=== PATIENT | male | born 1940 | race Caucasian/White ===

== ENCOUNTER 2017-02-03 10:30 | Emergency (ER) | payer MEDICARE, OTHER ==
[~2017-02-03] VITALS: Ht 172.7 cm; Wt 106.6 kg
--- NOTE | 2017-02-03 10:35 | NUR ---
[id number] FROM AMES: R EYEBROW LACERATION AND R FOREARM ABRASION. PT AOOX3. VSS. DENIES PAIN ELSEWHERE. AT BS FOR EVAL. SAFETY AND COMFORT MEASURES PROVIDED. WILL MONITOR.
--- NOTE | 2017-02-03 10:45 | NUR ---
AT FOR WOUND CARE.
[2017-02-03] MEDS ORDERED: TDAP [DIPH/PERTUSSIS/TET] 0.5 ML VIAL IM ONE ×2 (11:30→11:33)
[2017-02-03] MEDS ORDERED: LIDOCAINE /MPF 1% VIAL 5 ML VIAL IJ ONE (11:30)
--- NOTE | 2017-02-03 11:52 | NUR ---
Patient discharged to home in stable condition. Written and verbal after care instructions given. Patient verbalizes understanding of instruction.
[2017-02-03 11:55] VITALS: BP 143/81
== END 2017-02-03 11:57 | disposition home or self-care (01) ==
LOC: ER 10:35
DX: S01.111A Laceration without foreign body of right eyelid and periocular area, initial encounter (principal); S00.91XA Abrasion of unspecified part of head, initial encounter; S40.811A Abrasion of right upper arm, initial encounter; I10 Essential (primary) hypertension; Z88.0 Allergy status to penicillin; Z88.6 Allergy status to analgesic agent; Z88.8 Allergy status to other drugs, medicaments and biological substances; W01.0XXA Fall on same level from slipping, tripping and stumbling without subsequent striking against object, initial encounter; Y93.89 Activity, other specified; Y92.89 Other specified places as the place of occurrence of the external cause; Y99.8 Other external cause status
CPT/HCPCS: 70450-TC; 90715; A4606; A6402; Z7610

== ENCOUNTER 2018-01-30 16:20 | Inpatient (IN) | payer MEDICARE, OTHER ==
[~2018-01-30] VITALS: Ht 170.2 cm; Wt 94.8 kg
--- NOTE | 2018-01-30 16:40 | NUR ---
PT REC'D A CUP OF WATER AND RLE ELEVATED ON PILLOWS. ICE PACK APPLIED.
--- NOTE | 2018-01-30 16:50 | NUR ---
PT STARTED COUGHING AND YELLING. WATER ALL OVER PT AND FLOOR. PT STATED THAT HE WAS CHOKING ON SOMETHING. PT WAS SATURATING AT 95% ON RA. SUCTION CONNECTED. PT STARTED COUGHING AGAIN AND WAS SUCTIONED. SMALL AMOUT OF CHICKEN NOTED IN SUCTIONING CONTAINER. PT STATED THAT HE ATE CHICKEN FOR LUNCH.
--- NOTE | 2018-01-30 17:04 | NUR ---
XRAY AT THE BEDSIDE.
--- NOTE | 2018-01-30 17:37 | NUR ---
PT TO GET A SHORT LEG POSTERIOR ORTHOGLASS SPLINT TO RT LE
--- NOTE | 2018-01-30 17:38 | NUR ---
Crutches dispensed. Pt instructed on proper use of crutches BY MOLLY GREEN.
--- NOTE | 2018-01-30 17:49 | NUR ---
Patient discharged to home in stable condition. Written and verbal after care instructions given. Patient verbalizes understanding of instruction. PT'S VSS.
--- NOTE | 2018-01-30 18:12 | NUR ---
PT IS WAITING IN THE ROOM FOR FRIEND TO PICK HIM UP. Patient was able to demonstrate correct use of crutches.
--- NOTE | 2018-01-30 18:39 | NUR ---
PT'S FRIEND ARRIVED AND NOW PT IS UNSTEADY ON THE CRUTCHES. DR. WARREN IS AWARE.
[2018-01-30] MEDS ORDERED: ATOR80TA PO (18:55)
[2018-01-30] MEDS ORDERED: MAGN400T6 PO (18:55)
[2018-01-30] MEDS ORDERED: MULT1TAB73 PO (18:55)
[2018-01-30] MEDS ORDERED: TERA1CAP4 PO (18:55)
[2018-01-30] MEDS ORDERED: CHOL200026 PO (18:55)
[2018-01-30] MEDS ORDERED: PREG50CA PO (18:55)
[2018-01-30] MEDS ORDERED: METO-356 PO (18:55)
[2018-01-30] MEDS ORDERED: ASPI-1153 PO (18:55)
[2018-01-30 19:35] LABS: BASOPHILS # (AUTO) 0.1 /CMM (0.0-0.2); BASOPHILS % (AUTO) 0.9 % (0.0-2.0); EOSINOPHILS % (AUTO) 0.7 % (0.0-6.0); HEMATOCRIT 39 % (39-51); HEMOGLOBIN 13.9 g/dL (13.5-17.5); LYMPHOCYTES # (AUTO) 1.8 /CMM (0.8-4.8); LYMPHOCYTES % (AUTO) 22.1 % (20.0-44.0); MEAN CORPUSCULAR HGB CONC 35 g/dl (31.0-36.0); MEAN CORPUSCULAR VOLUME 89 fL (80-96); MONOCYTES # (AUTO) 0.7 /CMM (0.1-1.30); MONOCYTES % (AUTO) 8.6 % (2.0-12.0); NEUTROPHILS # (AUTO) 5.2 /CMM (1.8-8.9); NEUTROPHILS % (AUTO) 67.7 % (43.0-81.0); PLATELET COUNT (AUTO) 223 /CMM (150-450); RDW COEFFICIENT OF VARIATION 13.6 (11.5-15.0); RED BLOOD CELL COUNT(AUTO) 4.41 MIL/uL (4.5-6.0); WHITE BLOOD COUNT (AUTO) 7.9 K/uL (4.3-11.0)
[2018-01-30 19:36] LABS: INR 0.91 (0.85-1.15)
[2018-01-30 19:37] LABS: CARBON DIOXIDE 29 mmol/L (21-32); CHLORIDE 103 mmol/L (98-107); CREATININE 0.9 mg/dL (0.6-1.3); GLUCOSE 138 mg/dL (74-106); POTASSIUM 3.9 mmol/L (3.5-5.1); SODIUM SERUM 139 mmol/L (136-145); UREA NITROGEN, BLOOD 14 mg/dL (7-18)
--- NOTE | 2018-01-30 19:59 | NUR ---
MS 327-2
[2018-01-30] MEDS ORDERED: KETOROLAC TROMETHAMINE INJ 30 MG/ML VIAL IV PRN (20:00)
[2018-01-30] MEDS ORDERED: ONDANSETRON HCL/PF 4 MG/2 ML VIAL IVP PRN (20:00)
--- NOTE | 2018-01-30 20:02 | NUR ---
RANGEL REPORT TO MS NURSE.
[2018-01-30] MEDS ORDERED: PREGABALIN 25 MG CAPSULE PO PRN (20:30)
--- NOTE | 2018-01-30 20:39 | NUR ---
PT GOING TO MS VIA WC.
[2018-01-30 20:40] VITALS: BP 157/86
--- NOTE | 2018-01-30 21:00 | NUR ---
RN NOTES ADMITTED PATIENT FROM ER, SUPPOSED TO BE DISCHARGED TO HOME, PATIENT REFUSED DUE TO UNABLE TO AMBULATE, WITH RIGHT ANKLE FRACTURE. RECEIVED TREATMENT FROM ER. NO SURGICAL PLANS AT THIS TIME, ALERT AND ORIENTED X4, CALM, NO SOB, TOLERATING ROOM AIR, WITH CHRONIC DRY COUGH, PER PATIENT, HAD SEEN MD FOR COUGH, NO DX FOR NOW. NO IV LINE, SUPPOSED TO BE DISCHARGED TO HOME. DENIES PAIN AT REST, PAIN ONLY DURING MOVEMENT, NWB TO RIGHT ANKLE, REQUIRES WHEELCHAIR TO GO AROUND. CONTINENT OF BOWEL AND BLADDER, REFUSED URINAL. NEEDS ATTENDED, SKIN ASSESSMENT PERFORMED, ORIENTED TO ROOM AND USE OF CALL LIGHT.
[2018-01-30] MEDS: CHOLECALCIFEROL 1,000 UNIT TABLET (VIT D3) PO SCH (21:23)
[2018-01-30] MEDS: TERAZOSIN HCL 1 MG CAPSULE PO SCH (21:24)
[2018-01-30] MEDS ORDERED: ACETAMINOPHEN 325 MG TABLET PO PRN (22:30)
[2018-01-30 23:04] VITALS: BP 157/86
[2018-01-31] MEDS ORDERED: ASPIRIN 81 MG TAB.CHEW PO ONE (01:30)
[2018-01-31 04:52] LABS: BASOPHILS % (AUTO) 0.1 % (0.0-2.0); EOSINOPHILS % (AUTO) 0.8 % (0.0-6.0); HEMATOCRIT 39 % (39-51); HEMOGLOBIN 12.9 g/dL (13.5-17.5); LYMPHOCYTES # (AUTO) 1.9 /CMM (0.8-4.8); LYMPHOCYTES % (AUTO) 18.3 % (20.0-44.0); MEAN CORPUSCULAR HGB CONC 34 g/dl (31.0-36.0); MEAN CORPUSCULAR VOLUME 91 fL (80-96); MONOCYTES # (AUTO) 0.8 /CMM (0.1-1.30); NEUTROPHILS # (AUTO) 7.6 /CMM (1.8-8.9); NEUTROPHILS % (AUTO) 72.8 % (43.0-81.0); PLATELET COUNT (AUTO) 229 /CMM (150-450); RDW COEFFICIENT OF VARIATION 14.2 (11.5-15.0); RED BLOOD CELL COUNT(AUTO) 4.25 MIL/uL (4.5-6.0); WHITE BLOOD COUNT (AUTO) 10.5 K/uL (4.3-11.0)
[2018-01-31 05:18] LABS: ALANINE AMINOTRANSFERASE 39 U/L (12-78); ALBUMIN 3.3 g/dL (3.4-5.0); ALKALINE PHOSPHATASE 81 U/L (46-116); ASPARTATE AMINOTRANSFERASE 19 U/L (15-37); B-TYPE NATRIURETIC PEPTIDE 445 PG/ML (0-125); BILIRUBIN,TOTAL 0.8 mg/dL (0.2-1.0); CALCIUM, SERUM 8.8 mg/dL (8.5-10.1); CARBON DIOXIDE 28 mmol/L (21-32); CHLORIDE 104 mmol/L (98-107); CREATININE 0.8 mg/dL (0.6-1.3); GLUCOSE 117 mg/dL (74-106); PHOSPHORUS 3.2 mg/dL (2.5-4.9); POTASSIUM 3.8 mmol/L (3.5-5.1); SODIUM SERUM 140 mmol/L (136-145); TOTAL PROTEIN, SERUM 6.7 g/dL (6.4-8.2); UREA NITROGEN, BLOOD 14 mg/dL (7-18)
[2018-01-31 05:20] LABS: CHOLESTEROL 177 mg/dL (<200); HDL CHOLESTEROL 50 mg/dL (40-60); LDL 106 mg/dL (0-99); THYROID STIMULATING HORMONE 0.978 uIU/mL (0.358-3.74); TRIGLYCERIDES 181 mg/dL (30-150)
--- NOTE | 2018-01-31 06:17 | NUR ---
RN NOTES PATIENT IS RESTING, NO SOB, RESPIRATION EVEN AND UNLABORED, NO COMPLAIN OF PAIN, RIGHT FOOT SECURED WITH SPLINT, NWB TO RIGHT FOOT, HAD X1 EPISODE OF VOMITING, SLEPT FOR 6 HOURS, NEEDS ATTENDED, CALL LIGHT WITHIN REACH.
[2018-01-31 08:00] VITALS: BP 110/67
[2018-01-31] MEDS: METOPROLOL SUCCINATE 25 MG TAB.SR.24H PO SCH (09:00)
[2018-01-31] MEDS: ASPIRIN EC 81 MG TABLET.DR PO SCH (10:11)
[2018-01-31] MEDS: CHOLECALCIFEROL 1,000 UNIT TABLET (VIT D3) PO SCH (10:11)
[2018-01-31] MEDS: ATORVASTATIN 40 MG TABLET PO SCH (10:11)
[2018-01-31] MEDS: MULTIVITAMINS,THERAGRAN 1 UDTAB TABLET PO SCH (10:12)
[2018-01-31 16:00] VITALS: BP 127/70
--- NOTE | 2018-01-31 19:35 | NUR ---
MS POLANCO OPENING NOTES: RECEIVED PT IN BED AND SITTING UP. PT ON ROOM AIR. PT IS A/OX4. PT USING CELLPHONE AT THIS TIME. CALL LIGHT WITHIN PT'S REACH. BED KEPT IN LOW, LOCKED POSITION, AND SIDE RAILS X 2UP. WILL CONTINUE TO MONITOR PT. Addendum: 01/31/18 at 1952 by ADAM LUX RN PT HAS NO IV NOTED. PT ALSO HAS SPLINT ON RIGHT LOWER LEG.
[2018-01-31 20:00] VITALS: BP 152/84
--- NOTE | 2018-01-31 20:14 | NUR ---
regan graves in to see pt. as well as ortho md.no surgery needed.
[2018-01-31] MEDS: TERAZOSIN HCL 1 MG CAPSULE PO SCH (21:26)
--- NOTE | 2018-02-01 01:15 | NUR ---
MS RN NOTES: SPOKE WITH STRAIGHT LINE EDGER PILLO AND INFORMED HIM THAT PT'S ALLERGIC REACTIONS TO PCN: UNKNOWN, DEMEROL: SEVERE DROWSINESS, VICODIN: SEVERE RASH, AND CARDIOLITE, LEXISCAN: SEVERE RASH ; ALSO INFORMED HIM THAT PT HAS NO IV. HE IS AWARE. HE SAID TO TRY TYLENOL 325MG PO X ONCE AND MONITOR FOR 4-6 HOURS. WILL CONTINUE TO MONITOR PT.
[2018-02-01] MEDS ORDERED: ACETAMINOPHEN 325 MG TABLET PO ONE ×2 (01:30→20:30)
[2018-02-01 06:40] LABS: BASOPHILS % (AUTO) 0.2 % (0.0-2.0); EOSINOPHILS % (AUTO) 1.5 % (0.0-6.0); HEMATOCRIT 37 % (39-51); HEMOGLOBIN 12.4 g/dL (13.5-17.5); LYMPHOCYTES # (AUTO) 2.2 /CMM (0.8-4.8); LYMPHOCYTES % (AUTO) 24.6 % (20.0-44.0); MEAN CORPUSCULAR HGB CONC 34 g/dl (31.0-36.0); MEAN CORPUSCULAR VOLUME 91 fL (80-96); MONOCYTES # (AUTO) 0.8 /CMM (0.1-1.30); MONOCYTES % (AUTO) 8.4 % (2.0-12.0); NEUTROPHILS % (AUTO) 65.3 % (43.0-81.0); PLATELET COUNT (AUTO) 214 /CMM (150-450); RDW COEFFICIENT OF VARIATION 14.1 (11.5-15.0); WHITE BLOOD COUNT (AUTO) 9.1 K/uL (4.3-11.0)
[2018-02-01 07:25] LABS: CALCIUM, SERUM 8.5 mg/dL (8.5-10.1); CARBON DIOXIDE 28 mmol/L (21-32); CHLORIDE 100 mmol/L (98-107); CREATININE 0.8 mg/dL (0.6-1.3); GLUCOSE 117 mg/dL (74-106); POTASSIUM 3.6 mmol/L (3.5-5.1); SODIUM SERUM 137 mmol/L (136-145); UREA NITROGEN, BLOOD 10 mg/dL (7-18)
[2018-02-01 07:32] LABS: APPEARANCE,URINE CLOUDY (CLEAR); BILIRUBIN,URINE NEGATIVE (NEGATIVE); BLOOD, URINE NEGATIVE Ery/uL (NEGATIVE); COLOR,URINE YELLOW (YELLOW); KETONES,URINE NEGATIVE (NEGATIVE); LEUKOCYTE ESTERASE ,URINE NEGATIVE (NEGATIVE); NITRITE, URINE NEGATIVE (NEGATIVE); PROTEIN,URINE NEGATIVE (NEGATIVE); UGLUCOSE NEGATIVE (NEGATIVE); UROBILINOGEN,URINE 0.2 EU/dL (0.2)
--- NOTE | 2018-02-01 07:47 | NUR ---
MS RN CLOSING NOTES: ALL NEEDS WERE ATTENDED AND ANTICIPATED FOR. PT ASLEEP AT THIS TIME. NO IV NOTED AT THIS TIME. PT HAS R LOWER LEG AIR FRACTURE BOOT FOR R ANKLE FRACTURE. CALL LIGHT WITHIN PT'S REACH. BED KEPT IN LOW, LOCKED POSITION, AND SIDE RAILS X 2UP. ENDORSED TO AM NURSE FOR SHANIQUA.
[2018-02-01 08:00] VITALS: BP 120/70
--- NOTE | 2018-02-01 08:00 | NUR ---
ms rn received on bed, awake,alert,oriented x4,not in any form of distress,respirations even and unlabored,no sob noted, lungs are clear,abdomen soft, positive bowel sounds,denies pain at this time,will monitor patient's condition.
[2018-02-01 08:09] LABS: BACTERIA,URINE Rare /HPF (None Seen); RBC,URINE 0-2 /HPF (0-2); SQUAMOUS EPITHELIAL CELL,UR 0-2 /HPF (None Seen); URINE AMORPHOUS URATE Moderate /HPF (None Seen); WBC,URINE 0-2 /HPF (0-3)
--- NOTE | 2018-02-01 09:00 | NUR ---
ms mccrary breakfast served,due meds given,tolerated well.
[2018-02-01] MEDS: MULTIVITAMINS,THERAGRAN 1 UDTAB TABLET PO SCH (09:56)
[2018-02-01] MEDS: ASPIRIN EC 81 MG TABLET.DR PO SCH (09:56)
[2018-02-01] MEDS: ATORVASTATIN 40 MG TABLET PO SCH (09:56)
[2018-02-01] MEDS: CHOLECALCIFEROL 1,000 UNIT TABLET (VIT D3) PO SCH (09:57)
[2018-02-01] MEDS: METOPROLOL SUCCINATE 25 MG TAB.SR.24H PO SCH (09:57)
--- NOTE | 2018-02-01 16:00 | NUR ---
ms rn was seen by pt, tolerated well.
[2018-02-01 16:08] VITALS: BP 130/71
--- NOTE | 2018-02-01 17:18 | NUR ---
ms rn on bed, no change of condition.
--- NOTE | 2018-02-01 19:30 | NUR ---
MS RN OPENING NOTES: RECEIVED PT IN BED AND IS SITTING UPRIGHT IN BED. AIR FRACTURE BOOT REMAINS IN PLACE ON RIGHT LOWER LEG. PT REQUESTING FOR TYLENOL HE TOOK TYLENOL AROUND 0100 THIS AM AND SAID HE HAD NO REACTIONS TO IT. INFORMED HIM THAT I WILL HAVE TO CALL DOCTOR FOR ORDER. CALL LIGHT WITHIN PT'S REACH. BED KEPT IN LOW, LOCKED POSITION, AND SIDE RAILS X 2UP. WILL CONTINUE TO MONITOR PT.
[2018-02-01 20:00] VITALS: BP 130/75
--- NOTE | 2018-02-01 20:24 | NUR ---
MS RN NOTES: SPOKE WITH CANT HOOKER PAULA FERRO. INFORMED HIM THAT PT IS REQUESTING FOR TYLENOL AGAIN FOR PAIN HE DID NOT HAVE ANY REACTIONS TO IT WHEN HE TOOK IT THIS MORNING AT 0134AM. SONIA FERRO AWARE OF ALLERGIES TO PCNS, ACETAMINOPHEN, HYDROCODONE, MEPERIDINE. GOT ONE TIME ORDER FOR TYLENOL 650MG PO X ONE. ALSO TO ENDORSE TO AM NURSE TO FOLLOW UP WITH PRIMARY MD ABOUT THIS.
--- NOTE | 2018-02-01 20:30 | NUR ---
MS RN NOTES: SPOKE WITH DALE FROM PHARMACY AND NOTIFIED HIM THAT SONIA FERRO IS AWARE OF ACETAMINOPHEN ALLERGY. EXPLAINED TO DALE THAT PT TOOK IT ONE TIME AND HE HAD NO REACTIONS TO IT. HE SAID HE WILL TAKE OUT THE ACETAMINOPHEN OFF ALLERGY IT MAY BE THE HYDROCODONE COMPONENT.
[2018-02-01] MEDS: TERAZOSIN HCL 1 MG CAPSULE PO SCH (21:05)
--- NOTE | 2018-02-02 07:01 | NUR ---
MS RN CLOSING NOTES: ALL NEEDS WERE ATTENDED AND ANTICIPATED FOR. NO IV NOTED. PT WITH BOOT ON RIGHT LOWER LEG. PT ASLEEP AT THIS TIME. NO S/S OF DISTRESS NOTED. CALL LIGHT WITHIN PT'S REACH. BED KEPT IN LOW, LOCKED POSITION, AND SIDE RAILS X 2UP. WILL ENDORSE TO AM NURSE FOR SHANIQUA.
[2018-02-02 08:00] VITALS: BP 120/94
--- NOTE | 2018-02-02 08:00 | NUR ---
MS RN RECEIVED ON BED, AWAKE,ALERT, ORIENTED X4,NOT IN ANY FORM OF DISTRESS, RESPIRATIONS EVEN AND UNLABORED,NO SOB NOTED, LUNGS ARE CLEAR, ABDOMEN SOFT, POSITIVE BOWEL SOUNDS, DENIES PAIN AT THIS TIME, WILL MONITOR PATIENT.
[2018-02-02] MEDS: ATORVASTATIN 40 MG TABLET PO SCH (08:57)
[2018-02-02] MEDS: ASPIRIN EC 81 MG TABLET.DR PO SCH (08:57)
[2018-02-02] MEDS: CHOLECALCIFEROL 1,000 UNIT TABLET (VIT D3) PO SCH (08:57)
[2018-02-02] MEDS: MULTIVITAMINS,THERAGRAN 1 UDTAB TABLET PO SCH (08:57)
[2018-02-02] MEDS: METOPROLOL SUCCINATE 25 MG TAB.SR.24H PO SCH (08:58)
--- NOTE | 2018-02-02 09:00 | NUR ---
MS POLANCO BREAKFAST SERVED DUE MEDS GIVEN,TOLERATED WELL.
--- NOTE | 2018-02-02 11:00 | NUR ---
MS RN CALLED HARNESS FITTER, PATIENT WILL BE TRANSFERRED TO [facility] AT 2PM, IS AWARE.
--- NOTE | 2018-02-02 12:59 | NUR ---
ms rn on bed,no change of condition.
[2018-02-02 16:01] VITALS: BP 104/55
--- NOTE | 2018-02-02 16:36 | NUR ---
MS RN CHANGE OF REHAB, PATIENT WILL BE GOING TO [facility] INSTEAD OF [facility].
--- NOTE | 2018-02-02 18:00 | NUR ---
MS RN PATIENT READY FOR DISCHARGE, REFUSED TO TAKE PICTURE ON HIS BOTH FOREARMS, ABRASION, NO S/S OF INFECTION,OPEN TO AIR.
--- NOTE | 2018-02-02 19:00 | NUR ---
MS RN PATIENT TRANSFERRED TO [facility], REPORT GIVEN TO PETER POLANCO, ALL NEEDS ATTENDED.
== END 2018-02-02 18:00 | DRG 562 ==
LOC: ER 16:22 → MED 20:02
PROVIDERS: ADMIT Nurse Practitioner Acute Care; ATTEND Nurse Practitioner Acute Care
DX: S82.434A Nondisplaced oblique fracture of shaft of right fibula, initial encounter for closed fracture (principal); I21.A1 Myocardial infarction type 2; E88.09 Other disorders of plasma-protein metabolism, not elsewhere classified; E44.1 Mild protein-calorie malnutrition; W01.0XXA Fall on same level from slipping, tripping and stumbling without subsequent striking against object, initial encounter; E66.9 Obesity, unspecified; E78.5 Hyperlipidemia, unspecified; Z68.32 Body mass index [BMI] 32.0-32.9, adult; I25.10 Atherosclerotic heart disease of native coronary artery without angina pectoris; Z87.891 Personal history of nicotine dependence; Z88.0 Allergy status to penicillin; I51.7 Cardiomegaly; R73.9 Hyperglycemia, unspecified; I25.2 Old myocardial infarction; R26.81 Unsteadiness on feet; Y93.9 Activity, unspecified; Y92.009 Unspecified place in unspecified non-institutional (private) residence as the place of occurrence of the external cause; I10 Essential (primary) hypertension; M25.561 Pain in right knee; G62.9 Polyneuropathy, unspecified; S93.491A Sprain of other ligament of right ankle, initial encounter
CPT/HCPCS: 36415; 71045-TC; 73560-TC; 73600-TC; 80048-TC; 80053-TC; 80061-TC; 81000-TC; 83735-TC; 83880; 84100-TC; 84443-TC; 84484-TC; 85025-TC; 85730-TC; 87081-TC; 87086-TC; 92521; 93307-TC; 97110-TC; 97116-TC; 97530-TC; A4606; Z7610

== ENCOUNTER 2018-04-28 02:44 | Emergency (ER) | payer MEDICARE, OTHER ==
[~2018-04-28] VITALS: Ht 170.2 cm; Wt 93.4 kg
[~2018-04-28 02:44] MED LIST: ASPI-1153 PO; ATOR80TA PO; CHOL200026 PO; MAGN400T6 PO; METO-356 PO; MULT1TAB73 PO; PREG50CA PO; TERA1CAP4 PO
--- NOTE | 2018-04-28 02:50 | NUR ---
BBSELF C/C UNABLE TO URINATE SINCE 1799. PT STATES "I HAVE BAD GROIN PAIN", NON-RADIATING. NO N/V. SKIN WARM AND DRY TO TOUCH. WAITING FOR MD HOLLEY.
[2018-04-28] MEDS ORDERED: LIDOCAINE 2% JEL UROJET 10 ML MM ONE (02:53)
[2018-04-28] MEDS ORDERED: MORPHINE SULFATE INJ 4 MG/ML DISP.SYRIN ONE (03:15)
[2018-04-28] MEDS ORDERED: MORPHINE SULFATE INJ 2 MG/ML DISP.SYRIN IM ONE (03:30)
[2018-04-28 03:54] LABS: APPEARANCE,URINE TURBID (CLEAR); BILIRUBIN,URINE 2+ (NEGATIVE); BLOOD, URINE 3+ Ery/uL (NEGATIVE); COLOR,URINE AMBER (YELLOW); KETONES,URINE TRACE (NEGATIVE); LEUKOCYTE ESTERASE ,URINE 2+ (NEGATIVE); NITRITE, URINE POSITIVE (NEGATIVE); PH,URINE 6.5 (5.0-8.0); PROTEIN,URINE 3+ mg/dl (NEGATIVE); UGLUCOSE NEGATIVE (NEGATIVE)
[2018-04-28 04:19] LABS: RBC,URINE TOO NUMEROUS TO COUN /HPF (0-2)
[2018-04-28 04:20] LABS: BACTERIA,URINE Few /HPF (None Seen); SQUAMOUS EPITHELIAL CELL,UR Few /HPF (None Seen)
--- NOTE | 2018-04-28 05:00 | NUR ---
VALERO REMOVED PER
--- NOTE | 2018-04-28 05:29 | NUR ---
PT TO CT
[2018-04-28] MEDS ORDERED: CIPROFLOXACIN IV RTU 400 MG in PREMIX 1 EA IV SCH (05:30)
[2018-04-28 05:32] LABS: BASOPHILS % (AUTO) 0.2 % (0.0-2.0); EOSINOPHILS % (AUTO) 0.2 % (0.0-6.0); HEMATOCRIT 38 % (39-51); HEMOGLOBIN 12.3 g/dL (13.5-17.5); LYMPHOCYTES # (AUTO) 1.6 /CMM (0.8-4.8); LYMPHOCYTES % (AUTO) 12.3 % (20.0-44.0); MEAN CORPUSCULAR HEMOGLOBIN 31 PG (26.0-33.0); MEAN CORPUSCULAR HGB CONC 33 g/dl (31.0-36.0); MEAN CORPUSCULAR VOLUME 94 fL (80-96); MONOCYTES # (AUTO) 0.8 /CMM (0.1-1.30); MONOCYTES % (AUTO) 6.1 % (2.0-12.0); NEUTROPHILS # (AUTO) 10.3 /CMM (1.8-8.9); NEUTROPHILS % (AUTO) 81.2 % (43.0-81.0); PLATELET COUNT (AUTO) 216 /CMM (150-450); RDW COEFFICIENT OF VARIATION 14.2 (11.5-15.0); RED BLOOD CELL COUNT(AUTO) 4.01 MIL/uL (4.5-6.0); WHITE BLOOD COUNT (AUTO) 12.7 K/uL (4.3-11.0)
[2018-04-28 05:40] LABS: CALCIUM, SERUM 8.3 mg/dL (8.5-10.1); CARBON DIOXIDE 27 mmol/L (21-32); CHLORIDE 101 mmol/L (98-107); CREATININE 0.8 mg/dL (0.6-1.3); GLUCOSE 141 mg/dL (74-106); POTASSIUM 3.9 mmol/L (3.5-5.1); SODIUM SERUM 136 mmol/L (136-145); UREA NITROGEN, BLOOD 10 mg/dL (7-18)
[2018-04-28 06:12] VITALS: BP 129/86
== END 2018-04-28 06:32 | disposition home or self-care (01) ==
LOC: ER 02:45
DX: N39.0 Urinary tract infection, site not specified (principal); N48.89 Other specified disorders of penis; N43.3 Hydrocele, unspecified; N41.9 Inflammatory disease of prostate, unspecified; G62.9 Polyneuropathy, unspecified; Z79.82 Long term (current) use of aspirin; Z88.0 Allergy status to penicillin; Z88.5 Allergy status to narcotic agent; Z90.89 Acquired absence of other organs
CPT/HCPCS: 36415; 76870-TC; 80048-TC; 81000-TC; 85025-TC; 87086-TC; 93978-TC; A4216; A4606; J0744; J2270; J3490; Z7610

== ENCOUNTER 2020-08-27 14:10 | Inpatient (IN) | payer MEDICARE, OTHER ==
[~2020-08-27] VITALS: Ht 172.7 cm; Wt 103.0 kg
[~2020-08-27 14:10] MED LIST changes: -ASPI-1153 PO; +ASPI-1498 PO; -MAGN400T6 PO; +MAGN400T8 PO; -METO-356 PO; +METO25TA4 PO; +MULT-754 PO; -MULT1TAB73 PO
--- NOTE | 2020-08-27 14:10 | NUR ---
BIB RA 78 FROM HOME, TWISTED HIS L ANKLE WHILE WALKING AT HOME, TO ER BED 9, HOOKED TO MONITOR, CHANGED TO HOSP GOWN, WARM BLANKET PROVIDED, PATIENT AAO x 4, AWAITING MD HOLLEY
--- NOTE | 2020-08-27 15:12 | NUR ---
DR YEE AT BEDSIDE
[2020-08-27 15:31] LABS: BASOPHILS % (AUTO) 0.3 % (0.0-2.0); EOSINOPHILS % (AUTO) 1.8 % (0.0-6.0); HEMATOCRIT 39 % (39-51); HEMOGLOBIN 12.8 g/dL (13.5-17.5); LYMPHOCYTES # (AUTO) 1.6 /CMM (0.8-4.8); LYMPHOCYTES % (AUTO) 21.4 % (20.0-44.0); MEAN CORPUSCULAR HGB CONC 33 g/dl (31.0-36.0); MEAN CORPUSCULAR VOLUME 95 fL (80-96); MONOCYTES # (AUTO) 0.6 /CMM (0.1-1.30); MONOCYTES % (AUTO) 7.6 % (2.0-12.0); NEUTROPHILS # (AUTO) 5.3 /CMM (1.8-8.9); NEUTROPHILS % (AUTO) 68.9 % (43.0-81.0); PLATELET COUNT (AUTO) 163 /CMM (150-450); RED BLOOD CELL COUNT(AUTO) 4.08 MIL/uL (4.5-6.0); WHITE BLOOD COUNT (AUTO) 7.7 K/uL (4.3-11.0)
--- NOTE | 2020-08-27 15:37 | NUR ---
ORTHO CONSULT CATALINA. WAITING FOR CALL BACK.
[2020-08-27 15:39] LABS: CALCIUM, SERUM 9.1 mg/dL (8.5-10.1); CREATININE 0.8 mg/dL (0.6-1.3); POTASSIUM 3.8 mmol/L (3.5-5.1)
[2020-08-27] MEDS ORDERED: AZEL137S7 (15:47)
[2020-08-27] MEDS ORDERED: TERA5CAP4 PO (15:47)
--- NOTE | 2020-08-27 17:39 | NUR ---
BED 102.
--- NOTE | 2020-08-27 17:48 | NUR ---
RAPID COVID SWAB DONE AND SENT TO LAB
--- NOTE | 2020-08-27 17:48 | NUR ---
ORTHO CONSULT CATALINA. WAITING FOR CALL BACK.
--- NOTE | 2020-08-27 18:09 | NUR ---
REPORT GIVEN TO MOODY POLANCO OF MS UNIT. TO UPDATE NURSE WITH RAPID COVID RESULT BEFORE TRANSFER.
[2020-08-27] MEDS ORDERED: PROPOFOL 200 MG/20 ML VIAL IV ONE ×2 (18:30→19:30)
--- NOTE | 2020-08-27 18:30 | NUR ---
Dr Tipton at bedside to explain procedure. patient signed consent for L ankle closed reduction under moderate sedation
[2020-08-27] MEDS ORDERED: PROPOFOL 20 ML IV ONE (18:33)
[2020-08-27] MEDS ORDERED: ONDANSETRON HCL/PF 4 MG/2 ML VIAL IVP PRN (19:00)
[2020-08-27] MEDS ORDERED: MAG HYDROX/AL HYDROX/SIMETH 30 ML UDC PO PRN (19:00)
[2020-08-27] MEDS ORDERED: HYDROCODONE/APAP 5/325MG TABLET PO PRN (19:00)
[2020-08-27] MEDS ORDERED: ACETAMINOPHEN 325 MG TABLET PO PRN (19:00)
[2020-08-27] MEDS ORDERED: Z GUARD REMEDY 2 OZ OINT TP PRN (19:00)
[2020-08-27] MEDS ORDERED: MAGNESIUM HYDROXIDE 30 ML UDC PO PRN (19:00)
--- NOTE | 2020-08-27 19:03 | NUR ---
Report given to COLLIN Sen for SHANIQUA.
[2020-08-27 20:20] VITALS: BP 129/90
--- NOTE | 2020-08-27 20:25 | NUR ---
PT TRANSFERRED TO ROOM PER ACLS PROTOCOL
--- NOTE | 2020-08-27 20:30 | NUR ---
RECEIVED PT FROM ER VIA [facility] AWAKE A/O X3 ON O2 VIA NC @ 2L SPO2 99% LEFT FOOT CAST NOTED, CIRCULATION CHECKED, TRANSFER SAFELY FROM [facility] TO BED, V/S CHECKED AND RECORDED HEAD TO TOE ASSESSMENT DONE MULTIPLE BRUISES NOTED, PICTURE TAKEN, INITIAL ASSESSMENT DONE, HOOK TO TELE MONITOR WITH READING SINUS RHYTHM 80'S PAIN OF 10/10 IN LOWER EXTREMITIES COMPLAINT, PRN MEDS GIVEN, SAFETY MEASURE INITIATED BED ON LOWEST POSITION AND LOCKED SIDE RAILS UP X2 CALL LIGHT WITHIN REACH WILL CONT TO MONITOR
[2020-08-27] MEDS: MORPHINE SULFATE INJ 2 MG/ML DISP.SYRIN IV PRN (20:46)
[2020-08-27] MEDS ORDERED: TERAZOSIN HCL 5 MG CAPSULE PO SCH (22:00)
--- NOTE | 2020-08-27 23:35 | NUR ---
2334 PATIENT REQUESTING FOR A DOSE OF LYRICA AND ATORVASTATIN TONIGHT, DR BANG NOTIFIED AND AGREED.
--- NOTE | 2020-08-27 23:58 | NUR ---
TALK TO PT ABOUT THE HYRIN IF HE CAN ASK SOMEBODY TO BRING IT FROM HOME, HE SAID HE WILL TRY TO CALL HIS GIRLFRIEND AND ASK IF HE CAN BRING IT HERE, WILL F/U TOMORROW AND ENDORSE IT TO AM SHIFT NURSE
[2020-08-28] VITALS: BP 121/73
[2020-08-28] MEDS ORDERED: PREGABALIN 25 MG CAPSULE PO ONE
[2020-08-28] MEDS ORDERED: ATORVASTATIN 40 MG TABLET PO ONE
[2020-08-28] MEDS: MORPHINE SULFATE INJ 2 MG/ML DISP.SYRIN IV PRN ×2 (02:21→09:51)
[2020-08-28 04:00] VITALS: BP 122/72
[2020-08-28 06:31] LABS: BASOPHILS % (AUTO) 0.3 % (0.0-2.0); EOSINOPHILS % (AUTO) 1.5 % (0.0-6.0); HEMATOCRIT 38 % (39-51); HEMOGLOBIN 12.4 g/dL (13.5-17.5); LYMPHOCYTES # (AUTO) 1.9 /CMM (0.8-4.8); LYMPHOCYTES % (AUTO) 26.2 % (20.0-44.0); MEAN CORPUSCULAR HGB CONC 33 g/dl (31.0-36.0); MEAN CORPUSCULAR VOLUME 94 fL (80-96); MONOCYTES # (AUTO) 0.7 /CMM (0.1-1.30); MONOCYTES % (AUTO) 9.4 % (2.0-12.0); NEUTROPHILS # (AUTO) 4.5 /CMM (1.8-8.9); NEUTROPHILS % (AUTO) 62.6 % (43.0-81.0); PLATELET COUNT (AUTO) 168 /CMM (150-450); RED BLOOD CELL COUNT(AUTO) 3.97 MIL/uL (4.5-6.0); WHITE BLOOD COUNT (AUTO) 7.3 K/uL (4.3-11.0)
--- NOTE | 2020-08-28 07:10 | NUR ---
PT ON BED AWAKE ON O2 2L VIA NC TOLERATING WELL NO SOB NOTED, PAIN ON BLE STILL COMPLAINT DONT WANT TO TAKE MORPHINE AT THIS MOMENT HE SAID ITS STILL TOLERABLE, TELE MONITOR READS SINUS RHYTHM 80S ALL NEEDS ATTENDED SAFETY MEASURE MAINTAINED BED ON LOWEST POSITION AND LOCKED SIDE RAILS UP X2 CALL LIGHT WITHIN REACH WILL ENDORSED TO AM SHIFT NURSE
[2020-08-28 07:42] LABS: CALCIUM, SERUM 8.8 mg/dL (8.5-10.1); CREATININE 0.8 mg/dL (0.6-1.3); MAGNESIUM 1.8 mg/dL (1.8-2.4); PHOSPHORUS 3.7 mg/dL (2.5-4.9); POTASSIUM 4.1 mmol/L (3.5-5.1)
[2020-08-28 07:53] LABS: THYROID STIMULATING HORMONE 1.642 uIU/mL (0.358-3.74)
[2020-08-28 08:00] VITALS: BP 123/73
--- NOTE | 2020-08-28 08:00 | NUR ---
SALES PRODUCT MANAGER NOTE PATIENT IN BED AWAKE ,ALERT, ON TELE MONITOR SR HR 89, ON 2L NC NO SOB NOTED AT THIS TIME ,SEEN BY SAMMIE POLANCO FOREST ECOLOGIST OK TO GIVE MEDS AND POSSIBLE SURGERY, , LT LEG WITH BRACE INTACT ABLE TO MOVE TOES, RT AC HL INTACT AND FLUSHED WELL , BED IN LOWEST AND LOCKED POSITION , SAFETY MEASURE PROVIDED,OFFERED PAIN MEDICATION BUT REFUSED ,WILL CONT TO MONITOR
[2020-08-28] MEDS ORDERED: PREGABALIN 25 MG CAPSULE PO SCH (09:00)
[2020-08-28] MEDS ORDERED: AZELASTINE NASAL SPRAY 30 ML BOTTLE NS SCH (09:00)
[2020-08-28] MEDS ORDERED: METFORMIN 500 MG TABLET PO SCH (09:00)
[2020-08-28] MEDS ORDERED: FAMOTIDINE/PF INJ 20 MG/2 ML VIAL IV SCH (09:00)
[2020-08-28] MEDS ORDERED: METOPROLOL SUCCINATE 25 MG TAB.SR.24H PO SCH (09:00)
[2020-08-28] MEDS ORDERED: PANTOPRAZOLE 40 MG VIAL IV SCH (09:00)
--- NOTE | 2020-08-28 10:19 | NUR ---
telephone clerk note dr sanches bed side ortho, brace readjustment done, morphine 1 mg ivp given as ordered
--- NOTE | 2020-08-28 11:23 | NUR ---
teletype adjuster note turn reposition, keep clean dry , keep elevated lt leg on pillow, and per Akua mccrary sterile processing technician ok to start Lovenox and cardiac diet, order carried out
[2020-08-28] MEDS ORDERED: ENOXAPARIN SODIUM 40 MG/0.4 ML DISP.SYRIN SQ SCH (11:30)
[2020-08-28 12:00] VITALS: BP 131/75
--- NOTE | 2020-08-28 12:05 | NUR ---
tele r note ua collected as ordered, keep clean dry
[2020-08-28 12:13] LABS: BILIRUBIN,URINE NEGATIVE (NEGATIVE); BLOOD, URINE NEGATIVE Ery/uL (NEGATIVE); COLOR,URINE DARK YELLOW (YELLOW); LEUKOCYTE ESTERASE ,URINE NEGATIVE (NEGATIVE); NITRITE, URINE NEGATIVE (NEGATIVE); PH,URINE 5.5 (5.0-8.0); PROTEIN,URINE NEGATIVE (NEGATIVE); UGLUCOSE NEGATIVE (NEGATIVE); UROBILINOGEN,URINE 0.2 EU/dL (0.2)
[2020-08-28 12:47] LABS: BACTERIA,URINE None seen /HPF (None Seen); RBC,URINE NONE SEEN /HPF (0-2); SQUAMOUS EPITHELIAL CELL,UR Moderate /HPF (None Seen); WBC,URINE 0-2 /HPF (0-3)
--- NOTE | 2020-08-28 14:43 | NUR ---
telegraphic typewriter mechanic note unable to do picture on back patient refused, stated its painful to move ,offered pain meds but refused
[2020-08-28] MEDS ORDERED: FAMO-131 PO (15:35)
[2020-08-28] MEDS ORDERED: ENOX40DI SQ (15:35)
[2020-08-28] MEDS ORDERED: ACET325T53 PO (15:35)
[2020-08-28] MEDS ORDERED: MAGN400O6 PO (15:35)
[2020-08-28] MEDS ORDERED: HYDR-3972 PO (15:35)
[2020-08-28] MEDS ORDERED: METF-440 PO (15:35)
[2020-08-28 16:00] VITALS: BP 132/66
--- NOTE | 2020-08-28 16:30 | NUR ---
CROSS CUT SAW OPERATOR NOTE CALLED TO SNF REPORT GIVEN TO TATA POLANCO
--- NOTE | 2020-08-28 17:00 | NUR ---
television reporter note ambulance arrived report given ,went to snf with stable condition, rt ac hl removed ,tele removed
[2020-08-28] MEDS ORDERED: ATORVASTATIN 40 MG TABLET PO SCH (18:00)
[2020-08-28] MEDS ORDERED: CHOLECALCIFEROL (VITAMIN D 3) 400 UNIT TABLET PO SCH (18:00)
[2020-08-28] MEDS ORDERED: MULTIVIT W/MINERALS 1 TAB TABLET PO SCH (18:00)
[2020-08-28] MEDS ORDERED: TERAZOSIN HCL 1 MG CAPSULE PO SCH (22:00)
== END 2020-08-28 16:47 | DRG 544 ==
LOC: ER 14:14 → TELE1 17:50
PROVIDERS: ADMIT Registered Nurse; ATTEND Registered Nurse
PROC: 0QSKXZZ Reposition Left Fibula, External Approach (ICD-10-PCS; principal; 2020-08-28)
PROC: 0QSHXZZ Reposition Left Tibia, External Approach (ICD-10-PCS; 2020-08-28)
DX: M84.472A Pathological fracture, left ankle, initial encounter for fracture (principal); E78.5 Hyperlipidemia, unspecified; F40.240 Claustrophobia; G62.9 Polyneuropathy, unspecified; I25.2 Old myocardial infarction; I10 Essential (primary) hypertension; Z87.891 Personal history of nicotine dependence; Z95.2 Presence of prosthetic heart valve; W01.0XXA Fall on same level from slipping, tripping and stumbling without subsequent striking against object, initial encounter; Y93.9 Activity, unspecified; Y92.009 Unspecified place in unspecified non-institutional (private) residence as the place of occurrence of the external cause
CPT/HCPCS: 36415; 71045-TC; 73600-TC; 80048-TC; 80061-TC; 81001; 83735-TC; 84100-TC; 84443-TC; 85025-TC; 85730-TC; 87081-TC; 93307-TC; G0378; G0500; J1650; J2270; J2704; J3490; J7030

== ENCOUNTER 2020-09-03 14:49 | Inpatient (IN) | payer MEDICARE, OTHER ==
[~2020-09-03] VITALS: Ht 172.7 cm; Wt 98.4 kg
[~2020-09-03 14:49] MED LIST changes: +ACET325T53 PO; +AZEL137S7; +ENOX40DI SQ; +FAMO-131 PO; +HYDR-3972 PO; +MAGN400O6 PO; -MAGN400T8 PO; +METF-440 PO; -TERA1CAP4 PO; +TERA5CAP4 PO
--- NOTE | 2020-09-03 15:25 | NUR ---
DR. ARREOLA AT BS FOR KISHAN
[2020-09-03] MEDS ORDERED: NA P133E RC (15:26)
[2020-09-03] MEDS ORDERED: MULT-439 PO (15:26)
[2020-09-03] MEDS ORDERED: CRAN425C6 PO (15:26)
[2020-09-03] MEDS ORDERED: MAGN400O6 PO (15:26)
[2020-09-03] MEDS ORDERED: HYDR-4384 PO (15:26)
[2020-09-03] MEDS ORDERED: BISA10SU61 RC (15:26)
[2020-09-03] MEDS ORDERED: DOCU-141 PO (15:26)
--- NOTE | 2020-09-03 15:38 | NUR ---
BIB [facility] FOR NAUSEA AND VOMITING AND NOTED HEMATURIA TODAY. PT AAOX4, VSS. RR EVEN & UNLABORED. DENIES CP, SOB, DIZZINESS AT THIS TIME. WILL CONT TO MONITOR.
[2020-09-03 15:46] LABS: BASOPHILS # (AUTO) 0.1 /CMM (0.0-0.2); BASOPHILS % (AUTO) 0.4 % (0.0-2.0); EOSINOPHILS % (AUTO) 0.1 % (0.0-6.0); HEMATOCRIT 37 % (39-51); LYMPHOCYTES # (AUTO) 0.3 /CMM (0.8-4.8); MEAN CORPUSCULAR HGB CONC 33 g/dl (31.0-36.0); MEAN CORPUSCULAR VOLUME 94 fL (80-96); MONOCYTES # (AUTO) 0.7 /CMM (0.1-1.30); MONOCYTES % (AUTO) 4.6 % (2.0-12.0); NEUTROPHILS # (AUTO) 14.5 /CMM (1.8-8.9); NEUTROPHILS % (AUTO) 92.9 % (43.0-81.0); PLATELET COUNT (AUTO) 243 /CMM (150-450); WHITE BLOOD COUNT (AUTO) 15.6 K/uL (4.3-11.0)
--- NOTE | 2020-09-03 15:49 | NUR ---
PT TO CT VIA [facility]
[2020-09-03 15:53] LABS: CALCIUM, SERUM 9.3 mg/dL (8.5-10.1); CREATININE 1.1 mg/dL (0.6-1.3); POTASSIUM 3.6 mmol/L (3.5-5.1)
[2020-09-03 15:59] LABS: ALBUMIN 3.2 g/dL (3.4-5.0); BILIRUBIN,DIRECT 0.3 mg/dL (0.0-0.2); BILIRUBIN,TOTAL 0.9 mg/dL (0.2-1.0); TOTAL PROTEIN, SERUM 6.9 g/dL (6.4-8.2)
--- NOTE | 2020-09-03 17:38 | NUR ---
PT C/O LT ANKLE PAIN, COMES & GOES PER PT, WILL NOTIFY ERMD. WILL CONT TO MONITOR.
[2020-09-03] MEDS ORDERED: KETOROLAC TROMETHAMINE INJ 30 MG/ML VIAL IV ONE (18:30)
[2020-09-03] MEDS ORDERED: KETOROLAC TROMETHAMINE 15 MG/ML VIAL ONE (18:30)
--- NOTE | 2020-09-03 18:40 | NUR ---
MEDICATED FOR PAIN PER ERMD ORDER, PT JAYASHREE WELL. URINE COLLECTED VIA STRAIGHT CATH PER ERMD ORDER, PT JAYASHREE WELL.
[2020-09-03 18:57] LABS: BILIRUBIN,URINE Negative (NEGATIVE); BLOOD, URINE Large Ery/uL (NEGATIVE); COLOR,URINE YELLOW (YELLOW); LEUKOCYTE ESTERASE ,URINE Negative (NEGATIVE); NITRITE, URINE Negative (NEGATIVE); PH,URINE 8.5 (5.0-8.0); PROTEIN,URINE 30 mg/dl (NEGATIVE); UGLUCOSE Negative (NEGATIVE); UROBILINOGEN,URINE 0.2 EU/dL (0.2)
--- NOTE | 2020-09-03 19:52 | NUR ---
PT ON HIS CELLPHONE, PT STS LT ANKLE PAIN 11/12 & JAYASHREE WELL. DENIES CP, SOB, DIZZINESS, N/V AT THIS TIME. WILL CONT TO MONITOR.
[2020-09-03 19:53] LABS: BACTERIA,URINE 3+ /HPF (None Seen); RBC,URINE TOO NUMEROUS TO COUN /HPF (0-2); SQUAMOUS EPITHELIAL CELL,UR Few /HPF (None Seen); WBC,URINE 0-2 /HPF (0-3)
[2020-09-03] MEDS ORDERED: CIPROFLOXACIN IV RTU 400 MG in PREMIX 1 EA IV SCH (20:00)
--- NOTE | 2020-09-03 20:17 | NUR ---
DR. ARREOLA SPEAKING WITH DR. MORRIS REGARDING ADMISSION
[2020-09-03] MEDS ORDERED: METRONIDAZOLE 500MG/ NS 100ML 100 ML IV ONE (20:43)
[2020-09-03] MEDS ORDERED: CIPROFLOXACIN IV RTU 200 ML IV ONE (20:43)
--- NOTE | 2020-09-03 21:03 | NUR ---
NEG COVID PER LAB
[2020-09-03] MEDS ORDERED: MAGNESIUM HYDROXIDE 30 ML UDC PO PRN (21:30)
[2020-09-03] MEDS ORDERED: MAG HYDROX/AL HYDROX/SIMETH 30 ML UDC PO PRN (21:30)
[2020-09-03] MEDS ORDERED: Z GUARD REMEDY 2 OZ OINT TP PRN (21:30)
[2020-09-03] MEDS ORDERED: ZOLPIDEM TARTRATE 5 MG TABLET PO PRN (21:30)
--- NOTE | 2020-09-03 21:52 | NUR ---
REPORT GIVEN TO COLLIN COLES FOR SHANIQUA.
[2020-09-03 22:10] VITALS: BP 142/75
--- NOTE | 2020-09-03 22:10 | NUR ---
RN ADMITTING NOTE RECEIVED PT FROM ER VIA [facility] ACCOMPANIED BY 1 AZALIA DOVER RN, AND ANOTHER ER STAFF AND TRANSFERRED TO BED VIA 2 PERSON ASSIST. PT IS ALERT AND ORIENTED X4. PT ON ROOM AIR WITH RESPIRATIONS EVEN AND UNLABORED. COMPREHENSIVE PHYSICAL ASSESSMENT AND PATIENT CARE DONE. CALL LIGHT WITHIN REACH, SAFETY MEASURES AND ISOLATION PRECAUTION IN PLACE, WILL CONTINUE MONITOR AND ASSESS THROUGHOUT THE SHIFT. WILL CARRY OUT MD ORDERS ACCORDINGLY.
[2020-09-03] MEDS: METRONIDAZOLE 500MG/ NS 100ML 500 MG in PREMIX 1 EA IV SCH (22:11)
[2020-09-04] MEDS ORDERED: METRONIDAZOLE 500MG/ NS 100ML 100 ML IV ONE (04:06)
[2020-09-04] MEDS: METRONIDAZOLE 500MG/ NS 100ML 500 MG in PREMIX 1 EA IV SCH ×3 (04:09→21:04)
[2020-09-04] MEDS: HYDROCODONE/APAP 5/325MG TABLET PO PRN ×2 (06:21→19:27)
[2020-09-04 08:00] VITALS: BP 111/51
[2020-09-04 08:34] LABS: BASOPHILS % (AUTO) 0.2 % (0.0-2.0); EOSINOPHILS % (AUTO) 0.2 % (0.0-6.0); HEMATOCRIT 32 % (39-51); HEMOGLOBIN 10.6 g/dL (13.5-17.5); LYMPHOCYTES # (AUTO) 0.8 /CMM (0.8-4.8); LYMPHOCYTES % (AUTO) 5.1 % (20.0-44.0); MEAN CORPUSCULAR HGB CONC 33 g/dl (31.0-36.0); MEAN CORPUSCULAR VOLUME 94 fL (80-96); MONOCYTES # (AUTO) 0.7 /CMM (0.1-1.30); MONOCYTES % (AUTO) 4.8 % (2.0-12.0); NEUTROPHILS # (AUTO) 13.2 /CMM (1.8-8.9); NEUTROPHILS % (AUTO) 89.7 % (43.0-81.0); PLATELET COUNT (AUTO) 215 /CMM (150-450); RED BLOOD CELL COUNT(AUTO) 3.41 MIL/uL (4.5-6.0); WHITE BLOOD COUNT (AUTO) 14.7 K/uL (4.3-11.0)
[2020-09-04 09:18] LABS: CALCIUM, SERUM 8.5 mg/dL (8.5-10.1); CREATININE 1.1 mg/dL (0.6-1.3); PHOSPHORUS 2.9 mg/dL (2.5-4.9)
[2020-09-04] MEDS: LEVOFLOXACIN 500 MG /D5W 100ML 500 MG in PREMIX 1 EA IV SCH (11:09)
[2020-09-04] MEDS: ENOXAPARIN SODIUM 40 MG/0.4 ML DISP.SYRIN SQ SCH (11:41)
[2020-09-04 16:00] VITALS: BP 131/63
--- NOTE | 2020-09-04 18:13 | NUR ---
Spoke with significant other Emmie [phone], reports patient currently resides at [facility] [phone]. He is alert and oriented, requires assistance with adl's. Patient and family requested another SNF placement and preferred not to return to [facility]. Advised significant other Emmie that we might have some challenges finding another SNF due to pandemic but will refer to different SNF that's open for admission. Addendum: 09/04/20 at 1816 by VITOR BLAKE RN Amended: Links added.
--- NOTE | 2020-09-04 19:46 | NUR ---
RN-NOTES PATIENT LAYING IN BED INTERMITTENTLY SLEEPING,NO ACUTE DISTRESS NOTED,NO BLEEDING NOTED. IV LINE INTACT NO A/AX OF COMPLICATION NOTED. ENDORSE TO INCOMING NURSE FOR CONTINUITY OF CARE.
--- NOTE | 2020-09-04 19:56 | NUR ---
ms magdy initial notes received report from am nurse and seen patient while doing our rounds awake and alert , watching tv and reading his magazine at the same time. he just got a pain medication from am nurse. No signs of any distress noted. he's on room air.kept him warm and comfortable at all times. will continue monitoring. place call light at reach.
[2020-09-04 20:00] VITALS: BP 143/55
[2020-09-04] MEDS: ONDANSETRON HCL/PF 4 MG/2 ML VIAL IVP PRN (21:01)
--- NOTE | 2020-09-04 21:08 | NUR ---
RN NOTES PT WAS VOMITING- ZOFRAN 4MG IV GIVEN ORDERED
[2020-09-04 22:41] VITALS: BP 143/55
--- NOTE | 2020-09-05 | NUR ---
MS AFTER SCHOOL COORDINATOR NOTES PT CALLED AND COMPLAINING THAT HE CAN URINATE. GOT BLADDER SCANNER AND FOUND OUT MORE 400 URINE RETAIN AT THIS TIME. I SPOKE TO THE PATIENT IF HE'S A PROSTATE PROBLEM, HE ANSWERED ME "NO " AND ASK HIM IF ITS OK TO PUT AN IN AND OUT VALERO TO RELIEVED HIS PAIN AND DISCOMFORT . HE STATED "OK ".
--- NOTE | 2020-09-05 01:00 | NUR ---
MS DIAN NOTES' GOT AN ORDERED OF IN AND OUT VALERO .
[2020-09-05] MEDS: METRONIDAZOLE 500MG/ NS 100ML 500 MG in PREMIX 1 EA IV SCH ×3 (04:41→20:41)
[2020-09-05 07:16] LABS: BASOPHILS % (AUTO) 0.1 % (0.0-2.0); HEMATOCRIT 33 % (39-51); LYMPHOCYTES % (AUTO) 6.3 % (20.0-44.0); MEAN CORPUSCULAR HGB CONC 33 g/dl (31.0-36.0); MEAN CORPUSCULAR VOLUME 94 fL (80-96); MONOCYTES # (AUTO) 0.9 /CMM (0.1-1.30); MONOCYTES % (AUTO) 6.1 % (2.0-12.0); NEUTROPHILS # (AUTO) 13.6 /CMM (1.8-8.9); NEUTROPHILS % (AUTO) 87.5 % (43.0-81.0); PLATELET COUNT (AUTO) 205 /CMM (150-450); RED BLOOD CELL COUNT(AUTO) 3.57 MIL/uL (4.5-6.0); WHITE BLOOD COUNT (AUTO) 15.5 K/uL (4.3-11.0)
--- NOTE | 2020-09-05 07:30 | NUR ---
RN Initial Notes: Received pt. asleep in bed, breathing is even and unlabored. No sign of distress noted. Will continue to monitor.
--- NOTE | 2020-09-05 07:46 | NUR ---
mail processing machine operator closing notes pt resting now after morning care done. all due meds given and all needs met. kept him warm and comfortable at all times. endorse to am nurse.
[2020-09-05 07:59] LABS: CALCIUM, SERUM 8.6 mg/dL (8.5-10.1); CREATININE 0.8 mg/dL (0.6-1.3); MAGNESIUM 2.2 mg/dL (1.8-2.4); PHOSPHORUS 3.2 mg/dL (2.5-4.9); POTASSIUM 3.8 mmol/L (3.5-5.1)
[2020-09-05 08:00] VITALS: BP 125/68
[2020-09-05] MEDS: LEVOFLOXACIN 500 MG /D5W 100ML 500 MG in PREMIX 1 EA IV SCH (09:32)
[2020-09-05] MEDS: ENOXAPARIN SODIUM 40 MG/0.4 ML DISP.SYRIN SQ SCH (09:40)
--- NOTE | 2020-09-05 10:43 | NUR ---
Received a call from [facility] to insert muir cath.
--- NOTE | 2020-09-05 11:14 | NUR ---
Fleming cath Fr.16 inserted with dark colored urine output. Pt. tolerated well. Will continue to monitor.
[2020-09-05 16:09] VITALS: BP 148/75
[2020-09-05] MEDS: HYDROCODONE/APAP 5/325MG TABLET PO PRN (18:35)
--- NOTE | 2020-09-05 18:35 | NUR ---
[place] 1 tab given prn for left ankle pain 9/10, aching pain.
--- NOTE | 2020-09-05 19:18 | NUR ---
MS RN: CONTINUITY OF CARE Patient in bed awake, tolerating on room air. Patient is A/O x4. LLE with HARISH wrap, circulation, sensation intact, limited movement d/t pain. Fleming cath in place to gravity drainage with dark yellow cloudy urine, denies bladder pain. Fall; Skin precaution maintained.
[2020-09-05 20:00] VITALS: BP 139/68
[2020-09-05 20:21] VITALS: BP 139/68
[2020-09-06] MEDS: METRONIDAZOLE 500MG/ NS 100ML 500 MG in PREMIX 1 EA IV SCH (04:03)
[2020-09-06] MEDS: MORPHINE SULFATE INJ 2 MG/ML DISP.SYRIN IV PRN ×2 (04:22→20:56)
--- NOTE | 2020-09-06 04:22 | NUR ---
MS RN: LEG PAIN Report sharp pain 9/10 in his left leg, able to wiggle left toes but unable to move d/t pain. PRN Morphine given, will reassess.
--- NOTE | 2020-09-06 07:09 | NUR ---
MS RN: END OF SHIFT REPORT Patient in bed A/O x4, irritable at times. Uncooperative with hygiene care, turning and reposition. On IV Flagyl and Levaquin. No BM this shift, afebrile. Fleming cath with adequate urine output. Left leg pain managed with PRN Morphine with relief. Patient wants to speak with Ortho concerning his previous left ankle fracture. Will endorse to oncoming RN.
[2020-09-06 07:29] LABS: BASOPHILS % (AUTO) 0.4 % (0.0-2.0); HEMATOCRIT 35 % (39-51); HEMOGLOBIN 11.4 g/dL (13.5-17.5); LYMPHOCYTES # (AUTO) 2.1 /CMM (0.8-4.8); LYMPHOCYTES % (AUTO) 23.8 % (20.0-44.0); MEAN CORPUSCULAR HGB CONC 33 g/dl (31.0-36.0); MEAN CORPUSCULAR VOLUME 94 fL (80-96); MONOCYTES # (AUTO) 0.9 /CMM (0.1-1.30); MONOCYTES % (AUTO) 10.4 % (2.0-12.0); NEUTROPHILS # (AUTO) 5.6 /CMM (1.8-8.9); NEUTROPHILS % (AUTO) 63.4 % (43.0-81.0); PLATELET COUNT (AUTO) 229 /CMM (150-450); RED BLOOD CELL COUNT(AUTO) 3.68 MIL/uL (4.5-6.0); WHITE BLOOD COUNT (AUTO) 8.8 K/uL (4.3-11.0)
--- NOTE | 2020-09-06 07:30 | NUR ---
received pt. this am alert and oriented x4.c/o anklle pain from time to time.refuses pain med.
[2020-09-06 07:47] LABS: CALCIUM, SERUM 8.7 mg/dL (8.5-10.1); CREATININE 0.8 mg/dL (0.6-1.3); MAGNESIUM 2.3 mg/dL (1.8-2.4); PHOSPHORUS 2.4 mg/dL (2.5-4.9); POTASSIUM 3.8 mmol/L (3.5-5.1)
[2020-09-06 08:00] VITALS: BP 136/63
--- NOTE | 2020-09-06 10:58 | NUR ---
spoke with ortho Dr. Garnica regarding consult. will come to see pt today.
[2020-09-06] MEDS: LEVOFLOXACIN (250MG) 250 MG TABLET PO SCH (11:05)
[2020-09-06] MEDS: ENOXAPARIN SODIUM 40 MG/0.4 ML DISP.SYRIN SQ SCH (11:07)
[2020-09-06] MEDS: METRONIDAZOLE 500 MG TABLET PO SCH ×2 (12:44→20:43)
--- NOTE | 2020-09-06 15:00 | NUR ---
dr. bonifacio myrick md and order for surgery written.
[2020-09-06 16:00] VITALS: BP 145/84
[2020-09-06] MEDS ORDERED: NEUTRA PHOS 1 POWD.PACKET PO ONE (16:30)
--- NOTE | 2020-09-06 18:00 | NUR ---
consents signed,given neutra phos for low phosphorous level.
[2020-09-06 20:00] VITALS: BP 149/80
[2020-09-06 20:25] VITALS: BP 96/65
[2020-09-07] MEDS: MORPHINE SULFATE INJ 2 MG/ML DISP.SYRIN IV PRN ×3 (01:00→19:57)
[2020-09-07] MEDS: METRONIDAZOLE 500 MG TABLET PO SCH ×3 (03:34→19:56)
[2020-09-07 06:12] LABS: BASOPHILS % (AUTO) 0.5 % (0.0-2.0); EOSINOPHILS % (AUTO) 2.3 % (0.0-6.0); HEMATOCRIT 35 % (39-51); HEMOGLOBIN 11.9 g/dL (13.5-17.5); LYMPHOCYTES % (AUTO) 27.8 % (20.0-44.0); MEAN CORPUSCULAR HGB CONC 34 g/dl (31.0-36.0); MEAN CORPUSCULAR VOLUME 92 fL (80-96); MONOCYTES # (AUTO) 0.8 /CMM (0.1-1.30); MONOCYTES % (AUTO) 11.7 % (2.0-12.0); NEUTROPHILS # (AUTO) 4.1 /CMM (1.8-8.9); NEUTROPHILS % (AUTO) 57.7 % (43.0-81.0); PLATELET COUNT (AUTO) 247 /CMM (150-450); RED BLOOD CELL COUNT(AUTO) 3.82 MIL/uL (4.5-6.0); WHITE BLOOD COUNT (AUTO) 7.2 K/uL (4.3-11.0)
[2020-09-07 06:35] LABS: CALCIUM, SERUM 8.7 mg/dL (8.5-10.1); CREATININE 0.7 mg/dL (0.6-1.3); MAGNESIUM 1.9 mg/dL (1.8-2.4); PHOSPHORUS 3.1 mg/dL (2.5-4.9); POTASSIUM 3.5 mmol/L (3.5-5.1)
--- NOTE | 2020-09-07 07:09 | NUR ---
SCHEDULED FOR SURGERY AT NOON AWARE MEDICATED X3 Q4 HORS FOR PAIN AND EFFECTIVE HE STATES HE DID NOT SLEEP BUT WITH ROUNDS I SAW HIM SLEEPING LEFT FOOT KEPT ELEVATED ON A PILLOW
--- NOTE | 2020-09-07 07:15 | NUR ---
MS RN NOTES PATIENT IN BED ALERT ORIENTED X 4. NO ACUTE DISTRESS NOTED. NO SOB NOTED. BREATHING UNLABORED. DENIED ANY PAIN. IV ACCESS PATENT AND INTACT, NO REDNESS, NO SWELLING NOTED. HEAD OF BED ELEVATED. SAFETY MEASURES IN PLACE. CALL LIGHT WITHIN REACH. WILL CONTINUE TO MONITOR ACCORDINGLY.
[2020-09-07 08:00] VITALS: BP 114/71
[2020-09-07] MEDS: LEVOFLOXACIN (250MG) 250 MG TABLET PO SCH (09:00)
[2020-09-07] MEDS: ENOXAPARIN SODIUM 40 MG/0.4 ML DISP.SYRIN SQ SCH (09:00)
--- NOTE | 2020-09-07 09:19 | NUR ---
MS RN NOTES HELD LOVENOX PATIENT FOR SURGERY
--- NOTE | 2020-09-07 11:00 | NUR ---
MS RN NOTES CLARIFIED WITH DR DALE IVORY REGARDING SURGERY CLEARANCE, PER DR HAILEY IVORY PATIENT CLEARED FOR SURGERY.
[2020-09-07] MEDS ORDERED: FENTANYL PF 100MCG/2ML AMPUL ONE (12:16)
[2020-09-07] MEDS ORDERED: HYDROMORPHONE INJ 2 MG/ML DISP.SYRIN ONE (12:16)
[2020-09-07] MEDS ORDERED: KETOROLAC TROMETHAMINE INJ 30 MG/ML VIAL ONE (12:23)
[2020-09-07] MEDS ORDERED: BUPIVACAINE 0.5 % PF 150 MG/30 ML VIAL ONE (12:24)
[2020-09-07] MEDS ORDERED: BACITRACIN 50000 UNITS/VIAL ONE (12:24)
[2020-09-07] MEDS ORDERED: SEVOFLURANE 250 ML BOTTLE IH ONE (12:41)
[2020-09-07] MEDS ORDERED: VANCOMYCIN 1 GM VIAL ONE (13:03)
[2020-09-07] MEDS ORDERED: HYDROMORPHONE 1 MG/1 ML DISP.SYRIN ONE ×2 (13:57→14:40)
--- NOTE | 2020-09-07 15:00 | NUR ---
MS RN NOTES PATIENT CAME BACK FROM SURGERY IN STABLE CONDITION, ALERT ORIENTED X 4. NO ACUTE DISTRESS NOTED. LEFT LOWER LEG SURGERY DRESSING CLEAN DRY AND INTACT, VITAL SIGNS STABLE BP 118/84 IA 92 RR 18 TEMP 98.9 O2 SATURATION 100%. DENIED PAIN AT THIS TIME. WILL CONTINUE TO MONITOR. REPORT GIVEN BY JOSE ARMANDO POLANCO, NO NEW ORDERS MADE BY DR ROBERTS.
[2020-09-07 16:00] VITALS: BP 116/52
--- NOTE | 2020-09-07 19:00 | NUR ---
MS RN NOTES PATIENT IN BED ALERT ORIENTED X 4. NO ACUTE DISTRESS NOTED. NO SOB NOTED. BREATHING UNLABORED. DENIED ANY PAIN. IV ACCESS PATENT AND INTACT, NO REDNESS, NO SWELLING NOTED. HEAD OF BED ELEVATED.VITAL SIGNS WITHIN NORMAL LIMIT THROUGH OUT THE SHIFT. LEFT SURGERY DRESSING CLEAN DRY AND INTACT. NEEDS ATTENDED AND ANTICIPATED. SAFETY MEASURES IN PLACE. CALL LIGHT WITHIN REACH. WILL ENDORSE TO NIGHT NURSE FOR CONTINUITY OF CARE.
[2020-09-07 20:00] VITALS: BP 121/68
--- NOTE | 2020-09-07 20:29 | NUR ---
MS RN OPENING NOTE Patient awake in bed, A/O x4, on bedrest. PERRLA. No JVD. Brachial and pedal pulses 2+, symmetrical. CRP <3seconds. Breathing even, clear, unlabored, on room air. No signs of acute distress or SOB. IV site RFA 20g saline locked, patent and intact. No signs of redness or infiltration. Surgical dressing noted on left ankle. Dressing clean, dry, intact. Abdomen round, soft, non-tender. BS active. Fleming catheter in place. Urine output clear and yellow. Patient on cardiac soft diet, appetite is good. Bed in low position, wheels locked, side rails up x2, call light within reach.
[2020-09-08] MEDS: MORPHINE SULFATE INJ 2 MG/ML DISP.SYRIN IV PRN ×4 (01:17→16:03)
[2020-09-08] MEDS: KETOROLAC TROMETHAMINE INJ 30 MG/ML VIAL IV PRN ×2 (03:11→12:22)
[2020-09-08] MEDS: METRONIDAZOLE 500 MG TABLET PO SCH ×3 (04:51→20:09)
--- NOTE | 2020-09-08 07:30 | NUR ---
MS RN CLOSING NOTE Patient awake in bed, A/O x4, on bedrest. Breathing even, clear, unlabored, on room air. No signs of acute distress or SOB. IV site RFA 20g saline locked, patent and intact. No signs of redness or infiltration. Surgical dressing noted on left ankle. Dressing clean, dry, intact. Fleming catheter in place. Urine output clear and alexx Patient on cardiac soft diet, appetite is good. Bed in low position, wheels locked, side rails up x2, call light within reach.
--- NOTE | 2020-09-08 07:45 | NUR ---
RN OPENING NOTE: RECEIVED PT LYING IN BED. NO ACUTE SITRESS NOTED. PT A+OX3, ABLE TO MAKE NEEDS KNOWN. SL IN PLACE TO RIGHT FA. PATENT, NO SIGNS OF INFILTRATE AND OR INFECTION. PT WITH VALERO TO GRAVITY DRAINING CLOUDY ABIGAIL/RED URINE. ASSISTED WITH REPOSITIONING FOR SKIN INTEGRITY AND COMFORT. BED IN LOW AND LOCKED POSITION WITH SIDE RAILS UP X 2. WILL CONT TO MONITOR
[2020-09-08 08:00] VITALS: BP 131/82
[2020-09-08] MEDS: LEVOFLOXACIN (250MG) 250 MG TABLET PO SCH (08:40)
[2020-09-08] MEDS: HYDROCODONE/APAP 5/325MG TABLET PO PRN ×2 (08:41→20:10)
[2020-09-08] MEDS: ENOXAPARIN SODIUM 40 MG/0.4 ML DISP.SYRIN SQ SCH (08:42)
--- NOTE | 2020-09-08 12:37 | NUR ---
RN NOTE SPOKE WITH DR ROBERTS AND CLEARED THE PATIENT FOR DISCHARGE. PER MD THE FIRST DRESSING CHANGE TO BE DONE BY MD AT THE OFFICE. PRIMARY CARE NURSE IS MADE AWARE.
--- NOTE | 2020-09-08 13:43 | NUR ---
RN NOTE COVID 19 ANTIGEN ORDERED PER DNP CACHORRO FOR PLACEMENT. NOTED AND CARRIED OUT.
[2020-09-08] MEDS ORDERED: LEVO500T90 PO (13:45)
[2020-09-08 16:00] VITALS: BP 139/71
--- NOTE | 2020-09-08 16:27 | NUR ---
RN NOTE VICTOR M CACHORRO IS MADE AWARE PATIENT POSITIVE FOR COVID-19. RECEIVED AN ORDER TO TRANSFER THE PATIENT TO COVID UNIT, STAT CHEST XRAY AND D-DIMER. THE ORDERS ARE READ BACK, VERIFIED. NOTED AND CARRIED OUT.
--- NOTE | 2020-09-08 16:41 | NUR ---
RN NOTE: NEXT OF KIN NOTIFIED OF POSITIVE COVID-19 TEST AND NEED TO TRANSFER TO COVID UNIT
--- NOTE | 2020-09-08 17:00 | NUR ---
AIRCRAFT METALSMITH NOTE: PT TRANSFERRED IN STABLE CONDITION ON MONITOR TO [facility].
--- NOTE | 2020-09-08 18:20 | NUR ---
RN OPENING NOTE RECEIVED PATIENT FROM [facility],ALERT ORIENTED X3 VERBALLY RESPONSIVE,ON TELE MONITORING, ABLE TO MAKE NEEDS KNOWN,COVID POSITIVE MONITORING FOR DROPLET/CONTACT ISOLATION,ON ROOM AIR O2:95% ON VALERO CATHETER,URINE RED BLOODY CLOUDY DRAINING BY GRAVITY,IV SITE IS ON RIGHT FOREARM INTACT PATENT FLUSHED,LEFT ANKLE FRACTURE,CALL LIGHT WITHIN REACH, SAFETY MEASURE IMPLEMENT,BED IS IN LOW POSITION AND LOCKED,CONTINUE TO MONITOR,
[2020-09-08 20:00] VITALS: BP 137/80
[2020-09-08 21:00] VITALS: BP 144/85
[2020-09-09] VITALS (7 sets, daily range): BP systolic 135–156; BP diastolic 68–86
[2020-09-09] MEDS: MORPHINE SULFATE INJ 2 MG/ML DISP.SYRIN IV PRN (02:04)
[2020-09-09] MEDS: METRONIDAZOLE 500 MG TABLET PO SCH ×3 (03:11→21:07)
[2020-09-09] MEDS: ACETAMINOPHEN 325 MG TABLET PO PRN ×2 (06:29→14:03)
--- NOTE | 2020-09-09 07:01 | NUR ---
RN CLOSING NOTE PATIENT REMAINS ON ALERT ORIENTED X3 VERBALLY RESPONSIVE,COVID POSITIVE,CONTACT/DROPLET PRECAUTION,ON ROOM AIR O2:94%.ALL DUE MEDS GIVEN MD ORDERED,IV SITE IS ON RIGHT FOREARM INTACT,PATENT,ON VALERO CATHETER URINE STILL RED BLOODY AND CLOUDY UPON ADMISSION,KEPT CALL LIGHT WITHIN REACH,SAFETY MEASURE IMPLEMENTED,ENDORSE NEXT COMING SHIFT FOR CONTINUATION OF CARE.
--- NOTE | 2020-09-09 08:15 | NUR ---
MS RN OPENING NOTES RECEIVED PATIENT IN BED, AWAKE, A/O X3. PATIENT ON ROOM AIR; BREATHING EVEN AND UNLABORED, NO SOB NOTED AT THIS TIME. NO COMPLAINS OF PAIN AT THE MOMENT. IV ACCESS PRESENT ON RFA G # [address] WITH RED BLOODY CLOUDY DRAINING. SAFETY PRECAUTIONS IN PLACE; BED IN LOW POSITION AND LOCKED, RAILS UP X2, CALL LIGHT WITHIN REACH. WILL CONTINUE TO MONITOR PATIENT.
[2020-09-09] MEDS: LEVOFLOXACIN (250MG) 250 MG TABLET PO SCH (09:01)
[2020-09-09] MEDS: ENOXAPARIN SODIUM 40 MG/0.4 ML DISP.SYRIN SQ SCH (10:21)
--- NOTE | 2020-09-09 14:08 | NUR ---
MS RN NOTES PATIENT ASKING FOR PAIN MEDICATION DUE TO PAIN 4 OUT OF 10. PRN TYLENOL ADMINISTERED. WILL REASSESS.
[2020-09-09] MEDS: HYDROCODONE/APAP 5/325MG TABLET PO PRN (15:26)
--- NOTE | 2020-09-09 18:40 | NUR ---
MS RN CLOSING NOTES PATIENT REMAINS IN BED, AWAKE, A/O X3. PATIENT ON ROOM AIR; BREATHING EVEN AND UNLABORED, NO SOB NOTED. PAIN TREATED WITH PRN MEDICATIONS DURING SHIFT. IV ACCESS PRESENT ON RFA G # [address] WITH ORANGE URINE DRAINING WELL. ALL NEEDS ATTENDED THROUGHOUT THE DAY. SAFETY PRECAUTIONS IN PLACE; BED IN LOW POSITION AND LOCKED, RAILS UP X2, CALL LIGHT WITHIN REACH. WILL ENDORSE TO TEXTURING MACHINE FIXER NURSE.
--- NOTE | 2020-09-09 19:50 | NUR ---
RN NOTES PATIENT AWAKE, A/O X3. PATIENT ON ROOM AIR, O2 SAT 100%. BREATHING EVEN AND UNLABORED, NO SOB NOTED. DENIES OF PAIN AT THIS TIME. IV ACCESS PRESENT ON RFA G # 20 SL. PATENT AND INTACT. [facility] CATH IN PLACE WITH ABIGAIL URINE DRAINING WELL. BED LOCKED AND IN LOWEST POSITION. SIDE RAILS UP X2. ALL SAFETY MEASURES IMPLEMENTED. CALL LIGHT WITHIN REACH. WILL CONTINUE TO MONITOR.
[2020-09-10] MEDS: MORPHINE SULFATE INJ 2 MG/ML DISP.SYRIN IV PRN (00:05)
[2020-09-10] MEDS: METRONIDAZOLE 500 MG TABLET PO SCH ×3 (03:46→20:09)
[2020-09-10 04:00] VITALS: BP 156/69
--- NOTE | 2020-09-10 07:51 | NUR ---
RN NOTES PATIENT A/O X 3, ABLE TO MAKE NEEDS KNOWN. NO SOB OR ANY RESPIRATORY DISTRESS. ON ROOM AIR, O2 SAT 93%. IV ACCESS ON RIGHT FOREARM #20SL. PATENT AND INTACT. [facility] CATH IN PLACE DRAINING ABIGAIL URINE, 250 OUTPUT. BED LOCKED AND IN LOWEST POSITION. SIDE RAILS UP X2. ALL SAFETY MEASURES IMPLEMENTED. CALL LIGHT WITHIN REACH. ENDORSED TO ONCOMING SHIFT.
[2020-09-10] MEDS: LEVOFLOXACIN (250MG) 250 MG TABLET PO SCH (10:29)
[2020-09-10] MEDS: ENOXAPARIN SODIUM 40 MG/0.4 ML DISP.SYRIN SQ SCH (10:31)
--- NOTE | 2020-09-10 14:18 | NUR ---
PATIENT COVID POSITIVE MD MADE AWARE.
[2020-09-10] MEDS: CLOTRIMAZOLE 1% 15 GM TUBE TP SCH (17:25)
[2020-09-10 20:00] VITALS: BP 138/88
--- NOTE | 2020-09-10 20:00 | NUR ---
RN NOTES PATIENT A/O X 3, ABLE TO MAKE NEEDS KNOWN. NO SOB OR ANY RESPIRATORY DISTRESS. ON ROOM AIR, O2 SAT 93%. IV ACCESS ON RIGHT FOREARM #20SL. PATENT AND INTACT. VALERO D/C'D IN AM SHIFT. BLADDER SCAN DONE WITH 16ML RESIDUAL. DENIES ANY DISCOMFORT. BED LOCKED AND IN LOWEST POSITION. SIDE RAILS UP X2. ALL SAFETY MEASURES IMPLEMENTED. CALL LIGHT WITHIN REACH. WILL CONTINUE TO MONITOR.
[2020-09-11] MEDS: MORPHINE SULFATE INJ 2 MG/ML DISP.SYRIN IV PRN (01:42)
[2020-09-11 04:00] VITALS: BP 135/83
[2020-09-11] MEDS: METRONIDAZOLE 500 MG TABLET PO SCH ×3 (04:20→20:32)
--- NOTE | 2020-09-11 07:30 | NUR ---
RN OPENING NOTE PT LYING IN BED SEMIFOWLERS AWAKE, A/Ox4 ON RA BREATHING IS EVEN AND UNLABORED WITH NO SIGNS OF RESP DISTRESS OR SOB. PT DENIES PAIN AT THIS MOMENT. PT HAS FUNGAL RASH THROUGHOUT HIS BODY, WILL TREAT PER ORDERS. PT ALSO HAS L LEG SCAB AND SOFT CAST ON LOWER LEG. RFA #20 FLUSHED, PATENT AND INTACT WITH NO SIGNS OF INFILTRATION OR INFECTION. PT SAFETY PRECAUTIONS IN PLACE, BED LOCKED AND IN LOWEST POSITION, SR UP X2 AND CALL LIGHT WITHIN REACH. WILL MONITOR
--- NOTE | 2020-09-11 08:02 | NUR ---
RN NOTES PATIENT A/OX3. BREATHING EVEN AND UNLABORED. ON ROOM AIR, O2 SAT 93%. IV ACCESS ON RIGHT FOREARM #20 SL. PATENT AND INTACT. NO SIGNIFICANT CHANGES IN THIS SHIFT. BED LOCKED AND IN LOWEST POSITION. SIDE RAILS UP X2. SAFETY MEASURES IMPLEMENTED. CALL LIGHT WITHIN REACH. ENDORSED TO ONCOMING SHIFT.
[2020-09-11] MEDS: ENOXAPARIN SODIUM 40 MG/0.4 ML DISP.SYRIN SQ SCH (09:44)
[2020-09-11] MEDS: LEVOFLOXACIN (250MG) 250 MG TABLET PO SCH (09:45)
[2020-09-11] MEDS: CLOTRIMAZOLE 1% 15 GM TUBE TP SCH ×3 (09:46→17:00)
--- NOTE | 2020-09-11 11:30 | NUR ---
RN NOTE PT RESTING IN BED COMFORTABLY WITH NO SIGNS OF RESP DISTRESS OR SOB
--- NOTE | 2020-09-11 14:55 | NUR ---
RN NOTE PT RESTING IN BED COMFORTABLY. BREATHING IS EVEN AND UNLABORED WITH NO SIGNS OF RESP DISTRESS OR SOB. PT DENIES PAIN
[2020-09-11 16:00] VITALS: BP 118/72
--- NOTE | 2020-09-11 19:00 | NUR ---
RN CLOSING NOTE PT IN STABLE CONDITION. NO SIGNS OF RESP DISTRESS OR SOB, BREATHING EVEN AND UNLABORED. PT STATES NO PAIN AT THIS TIME. PT SAFETY MEASURES IN PLACE, BED LOCKED AND IN LOWEST POSITION, CALL TSANG WITHIN REACH, SR UP x2. WILL ENDORSE SHANIQUA TO ONCOMING NURSE
--- NOTE | 2020-09-11 19:59 | NUR ---
MS RN NOTES RECEIVED PATIENT AWAKE PATIENT ALERT ORIENTED X3. BREATHING EVEN AND UNLABORED. ON ROOM AIR, O2 SAT 93%. IV ACCESS ON RIGHT FOREARM #20 SL. PATENT AND INTACT. NO SIGNIFICANT CHANGES IN THIS SHIFT. BED LOCKED AND IN LOWEST POSITION. SIDE RAILS UP X2. SAFETY MEASURES IMPLEMENTED. USES URINAL. CALL LIGHT WITHIN REACH. ALL NEEDS ANTICIPATED. WILL CONTINUE TO MONITOR ACCORDINGLY.
[2020-09-11 20:51] VITALS: BP 126/59
[2020-09-12] MEDS: MORPHINE SULFATE INJ 2 MG/ML DISP.SYRIN IV PRN ×2 (02:16→23:38)
[2020-09-12 04:25] VITALS: BP 134/64
[2020-09-12] MEDS: METRONIDAZOLE 500 MG TABLET PO SCH ×3 (05:07→20:14)
--- NOTE | 2020-09-12 05:10 | NUR ---
RN NOTES SIGNIFICANT OTHER RONALD ( [phone] ) UPDATED HER REGARDING PATIENT'S CURRENT CONDITION. PATIENT IS RESTING COMFORTABLY AT THIS TIME.
--- NOTE | 2020-09-12 06:44 | NUR ---
MS RN NOTES ALL NEEDS ATTENDED AND MET. ABLE TO REST AND SLEPTAT INTERVALS. PATIENT IS ALERT / ORIENTEDX3. BREATHING EVEN AND UNLABORED. ON ROOM AIR, O2 SAT 93%. IV ACCESS ON RIGHT FOREARM #20 SL. PATENT AND INTACT. NO SIGNIFICANT CHANGES IN THIS SHIFT. SAFETY MEASURES IN PLACE. ASPIRATION PRECAUTION EMPHASIZED. BED LOCKED AND IN LOWEST POSITION. SIDE RAILS UP X2. SAFETY MEASURES IMPLEMENTED. CALL LIGHT WITHIN REACH. WILL ENDORSE TO AM NURSE FOR CONTINUITY OF CARE.
--- NOTE | 2020-09-12 07:30 | NUR ---
RN OPENING NOTE PT LYING IN BED SEMIFOWLERS AWAKE, A/Ox4 ON RA BREATHING IS EVEN AND UNLABORED WITH NO SIGNS OF RESP DISTRESS OR SOB. PT DENIES PAIN AT THIS MOMENT. PT HAS FUNGAL RASH THROUGHOUT HIS BODY, WILL TREAT PER ORDERS. RFA #20 FLUSHED, PATENT AND INTACT WITH NO SIGNS OF INFILTRATION OR INFECTION. PT SAFETY PRECAUTIONS IN PLACE, BED LOCKED AND IN LOWEST POSITION, SR UP X2 AND CALL LIGHT WITHIN REACH. WILL MONITOR
[2020-09-12 07:38] LABS: BASOPHILS % (AUTO) 0.3 % (0.0-2.0); EOSINOPHILS % (AUTO) 3.5 % (0.0-6.0); HEMATOCRIT 38 % (39-51); HEMOGLOBIN 12.5 g/dL (13.5-17.5); LYMPHOCYTES # (AUTO) 1.2 /CMM (0.8-4.8); LYMPHOCYTES % (AUTO) 19.8 % (20.0-44.0); MEAN CORPUSCULAR HGB CONC 33 g/dl (31.0-36.0); MEAN CORPUSCULAR VOLUME 93 fL (80-96); MONOCYTES # (AUTO) 0.7 /CMM (0.1-1.30); MONOCYTES % (AUTO) 11.2 % (2.0-12.0); NEUTROPHILS % (AUTO) 65.2 % (43.0-81.0); PLATELET COUNT (AUTO) 288 /CMM (150-450); RED BLOOD CELL COUNT(AUTO) 4.08 MIL/uL (4.5-6.0); WHITE BLOOD COUNT (AUTO) 6.1 K/uL (4.3-11.0)
[2020-09-12 07:53] LABS: CREATININE 0.9 mg/dL (0.6-1.3); POTASSIUM 3.6 mmol/L (3.5-5.1)
[2020-09-12 08:10] LABS: CALCIUM, SERUM 8.4 mg/dL (8.5-10.1)
[2020-09-12] MEDS ORDERED: MINERAL OIL 133 ML (PYXIS) 1 EA ENEMA RC ONE (08:30)
[2020-09-12] MEDS: CLOTRIMAZOLE 1% 15 GM TUBE TP SCH ×3 (09:41→16:55)
[2020-09-12] MEDS: POLYETHYLENE GLYCOL 3350 17 GM POWD.PACK PO SCH (09:42)
[2020-09-12] MEDS: LEVOFLOXACIN (250MG) 250 MG TABLET PO SCH (09:42)
[2020-09-12] MEDS: ENOXAPARIN SODIUM 40 MG/0.4 ML DISP.SYRIN SQ SCH (09:45)
--- NOTE | 2020-09-12 11:30 | NUR ---
RN NOTE PER LENS FINISHER JANIE ORDER, ADMINISTERED FLEET ENEMA TO PT ALONG WITH MIRALAX
[2020-09-12 12:00] VITALS: BP 109/70
--- NOTE | 2020-09-12 13:45 | NUR ---
RN NOTE PT RESTING IN BED COMFORTABLY WATCHING TV. PT DENIES PAIN. NO SOB OR RESP DISTRESS, BREATHING EVEN AND UNLABORED
--- NOTE | 2020-09-12 15:30 | NUR ---
RN NOTED PT RESTING IN BED COMFORTABLY, NO SIGNS OF RESP DISTRESS OR SOB
[2020-09-12 16:00] VITALS: BP 106/60
--- NOTE | 2020-09-12 19:30 | NUR ---
MS/RN NOTES RECEIVED PATIENT IN BED RESTING, WATCHING TV. PATIENT IS ALERT AND ORIENTED X 4. PATIENTS BREATHING IS EVEN AND UNLABORED. NO SIGNS OF SOB OR RESPIRATORY DISTRESS NOTED. PATIENT HAS IV ACCESS ON RIGHT FA #2OG SL FLUSHING WELL. PATIENT IS NOT SIGNS OF DISTRESS. SAFETY MEASURES ARE IN PLACE, BED IS LOCKED AND PLACED IN THE LOW POSITION SIDE RAILS UP X 2, CALL LIGHT IS WITHIN REACH. WILL CONTINUE TO MONITOR.
[2020-09-12 20:00] VITALS: BP 110/75
--- NOTE | 2020-09-12 21:30 | NUR ---
MS/RN NOTES PATIENT HAS TWO VOMIT EPISODES. PATIENT AIRWAY IS CLEAR, ASPIRATION PRECAUTIONS IN PLACE. WILL CONTINUE TO MONITOR.
--- NOTE | 2020-09-12 22:12 | NUR ---
RN NOTES: RECEIVED ENDORSEMENT FROM KINSEY/RN, LYING IN BED, ON RA SPO2-95%,A/OX4, ON CLOSE WATCH, DROPLET/CONTACT PRECAUTION OBSERVED.ORIENTED TO INCOMING STAFF, FALL AND SAFETY PRECAUTION OBSERVED, BED LOW AND LOCKED, CALL LIGHT WITHIN EASY REACH. SAFETY MEASURES IN PLACE.IV SITE PATENT RFA G#20.LEFT LOWER LEG SOFT CAST INTACT.
--- NOTE | 2020-09-12 22:25 | NUR ---
MS/RN NOTES GAVE REPORT TO COLLIN DE LA ROSA FOR SHANIQUA. PATIENT IS STABLE.
--- NOTE | 2020-09-12 23:21 | NUR ---
RN NOTES: RESTLESS, ASSISTED TO GET UP HE WANTS TO PEE IN STANDING POSITION, HE WAS ABLE TO PASS TEA COLORED URINE AT 150CC, DISCARDED, ASSISTED BACK TO BED,HE VERBALIZED HIS UNCOMFORTABLE BECAUSE HE CANNOT PASS HIS BM. -STILL NAUSEATED BUT NOT VOMITING PER ENDORSEMENT.
--- NOTE | 2020-09-13 01:40 | NUR ---
RN NOTES: AFTER PAIN MEDICATION GIVEN HE WAS ABLE TO SLEEP, NO VOMITING, NON LABORED BREATHING, ON CLOSE WATCH. -PER CN TO NOTIFY DOCTOR IN THE MORNING THAT HIS SIGNIFICANT OTHER-RONALD [phone] WOULD LIKE TO BE UPDATED ABOUT PATIENT DISCHARGE PLANNING AND SHE REQUEST TO D/C PATIENT IN ACUTE REHAB.
[2020-09-13 04:15] VITALS: BP 130/74
[2020-09-13] MEDS: METRONIDAZOLE 500 MG TABLET PO SCH ×3 (04:26→20:39)
--- NOTE | 2020-09-13 06:39 | NUR ---
RN NOTES: ASLEEP AT SHORT INTERVALS, NEEDS ATTENDED, NO PAIN OR DISCOMFORT, NO MORE VOMITING OR FEELING NAUSEATED AFTER PAIN MEDICATION GIVEN, BED LOW AND LOCKED, KEPT CALL LIGHT WITHIN EASY REACH, ENDORSED FOR CONTINUITY OF CARE.NO BM IN THE MORNING.
[2020-09-13 08:00] VITALS: BP 157/70
[2020-09-13] MEDS: POLYETHYLENE GLYCOL 3350 17 GM POWD.PACK PO SCH (09:02)
[2020-09-13] MEDS: LEVOFLOXACIN (250MG) 250 MG TABLET PO SCH (09:02)
[2020-09-13] MEDS: CLOTRIMAZOLE 1% 15 GM TUBE TP SCH ×3 (09:08→17:12)
[2020-09-13] MEDS: ENOXAPARIN SODIUM 40 MG/0.4 ML DISP.SYRIN SQ SCH (09:08)
--- NOTE | 2020-09-13 10:00 | NUR ---
RN NOTE SQUARE DANCE CALLER GURU LIMA PUT IN ORDER FOR CT SCAN FOR ABD AND PELVIS W/O CONTRAST AT 0930
[2020-09-13] MEDS: ONDANSETRON HCL/PF 4 MG/2 ML VIAL IVP PRN (10:07)
--- NOTE | 2020-09-13 15:00 | NUR ---
RN NOTE PT IN BED, DENIES PAIN, NO SOB OR RESP DISTRESS NOTED
[2020-09-13 16:00] VITALS: BP 135/63
[2020-09-13] MEDS ORDERED: BISACODYL SUPP (10 MG) 10 MG/SUPP.RECT SUPP.RECT RC PRN (17:30)
--- NOTE | 2020-09-13 19:00 | NUR ---
RN CLOSING NOTE PT IN STABLE CONDITION. WILL ENDORSE TO ONCOMING NURSE DULCOLAX SUPPOSITORY THAT IS STILL PENDING REVIEW. NO SIGNS OF RESP DISTRESS OR SOB. ALL PT SAFETY PRECAUTIONS IN PLACE. WILL ENDORSE SHANIQUA TO ONCOMING NURSE
[2020-09-13 20:00] VITALS: BP 125/69
--- NOTE | 2020-09-13 20:00 | NUR ---
RN opening notes Received Pt from morning nurse. Pt is sitting in bed comfortably watching TV. Pt is alert and orientedX3. Respiration is normal in room air. No SOB. No S/S of distress noted. IV site at RFA# 20 is clean, intact and flushes well, SL. Safety precautions is maintained. Bed at low position, brakes locked, side rails upX2, urinal at the bed side and call light is within reach. Will continue to monitor.
[2020-09-14 01:00] VITALS: BP 144/56
--- NOTE | 2020-09-14 01:02 | NUR ---
RN notes Pt's complaining of pain on left leg and ankle 9/10 on pain scale. Administered morphine 2 mg/iv push as ordered for pain. BP 144/56, pulse 91. Safety precautions is maintained.
[2020-09-14] MEDS: MORPHINE SULFATE INJ 2 MG/ML DISP.SYRIN IV PRN (01:03)
[2020-09-14 04:00] VITALS: BP 130/77
[2020-09-14] MEDS: METRONIDAZOLE 500 MG TABLET PO SCH ×2 (04:01→12:23)
--- NOTE | 2020-09-14 05:00 | NUR ---
RN notes Pt didn't have bowel movement last night. Offered Pt dulcolax suppository. Pt refused. Explained risks and benefits. Pt keep refusing. Pt gets agitated easily. Pt stated " There's nothing in there! I just want CT!"
--- NOTE | 2020-09-14 06:50 | NUR ---
RN closing notes Pt is resting in bed comfortably. Pt is alert and orientedX3. Respiration is normal in room air. No SOB. No S/S of distress noted. IV site at RFA# 20 is clean, intact and flushes well, SL. VS is stable. Afebrile. Kept Pt clean, dry and comfortable. Safety precautions is maintained. Bed at low position, brakes locked, side rails upX2, HOB elevated, urinal at the bed side and call light is within reach. Will endorse to morning nurse for SHANIQUA.
[2020-09-14 08:00] VITALS: BP 141/69
[2020-09-14 08:06] LABS: BASOPHILS % (AUTO) 0.7 % (0.0-2.0); EOSINOPHILS % (AUTO) 0.1 % (0.0-6.0); HEMATOCRIT 38 % (39-51); HEMOGLOBIN 12.7 g/dL (13.5-17.5); LYMPHOCYTES # (AUTO) 1.5 /CMM (0.8-4.8); LYMPHOCYTES % (AUTO) 26.6 % (20.0-44.0); MEAN CORPUSCULAR HGB CONC 33 g/dl (31.0-36.0); MEAN CORPUSCULAR VOLUME 92 fL (80-96); MONOCYTES # (AUTO) 0.6 /CMM (0.1-1.30); MONOCYTES % (AUTO) 10.6 % (2.0-12.0); NEUTROPHILS # (AUTO) 3.6 /CMM (1.8-8.9); PLATELET COUNT (AUTO) 265 /CMM (150-450); RED BLOOD CELL COUNT(AUTO) 4.16 MIL/uL (4.5-6.0); WHITE BLOOD COUNT (AUTO) 5.8 K/uL (4.3-11.0)
--- NOTE | 2020-09-14 08:22 | NUR ---
MS RN OPENING NOTES Patient is n bed, awake and verbally responsive. Alert and oriented X3, able to make needs known. Breathing even and unlabored, tolerating room air. IV line on RFA #20 intact and patent. Seen eating breakfast in bed. Safety precautions in place: bed locked and on lowest position, side rails up X2 and call light is within reach. Will continue to monitor.
[2020-09-14 08:54] LABS: CALCIUM, SERUM 8.8 mg/dL (8.5-10.1); CREATININE 0.8 mg/dL (0.6-1.3)
[2020-09-14] MEDS: CLOTRIMAZOLE 1% 15 GM TUBE TP SCH ×3 (09:00→16:31)
[2020-09-14] MEDS: POLYETHYLENE GLYCOL 3350 17 GM POWD.PACK PO SCH (10:07)
[2020-09-14] MEDS: LEVOFLOXACIN (250MG) 250 MG TABLET PO SCH (10:07)
[2020-09-14] MEDS: ENOXAPARIN SODIUM 40 MG/0.4 ML DISP.SYRIN SQ SCH (10:08)
--- NOTE | 2020-09-14 14:39 | NUR ---
RN NOTES PATIENT PICKED UP TODAY FOR CT OF ABDOMEN PROCEDURE VIA PATIENT'S BED, ACCOMPANIED BY DISCHARGE SPECIALIST.
[2020-09-14 16:00] VITALS: BP 141/72
--- NOTE | 2020-09-14 16:37 | NUR ---
RN NOTES PATIENT RETURNED FROM CT ABD PROCEDURE VIA PATIENT'S BED, ACCOMPANIED BY ANIMATION DIRECTOR.
--- NOTE | 2020-09-14 18:57 | NUR ---
MS RN CLOSING NOTES Patient is in bed, awake and verbally responsive. Alert and oriented X3, able to make needs known. Breathing even and unlabored, tolerating room air. IV line on RFA #20 intact and patent. S/p ct abdomen today. All due meds administered. Safety precautions maintained: bed locked and on lowest position, side rails up X2 and call light is within reach. Will endorse to material handler 1st shift rn for gutierrez.
[2020-09-14 20:00] VITALS: BP 147/70
--- NOTE | 2020-09-14 20:10 | NUR ---
RN NOTES PATIENT ALERT AND ORIENTED X3, ABLE TO MAKE NEEDS KNOWN. BREATHING EVEN AND UNLABORED. O2 SAT 92% ON ROOM AIR. NO SOB OR ANY RESPIRATORY DISTRESS. DENIES ANY PAIN AT THIS TIME. WITH IV LINE ON RFA #20 INTACT AND PATENT. ALL NEEDS ATTENDED PROMPTLY. BED LOCKED AND IN LOWEST POSITION. SIDE RAILS UP X2. SAFETY MEASURES IMPLEMENTED. CALL LIGHT WITHIN REACH. WILL CONTINUE TO MONITOR.
[2020-09-15] MEDS: MORPHINE SULFATE INJ 2 MG/ML DISP.SYRIN IV PRN ×2 (00:02→23:46)
[2020-09-15] MEDS: ONDANSETRON HCL/PF 4 MG/2 ML VIAL IVP PRN (00:10)
[2020-09-15 04:00] VITALS: BP 135/70
--- NOTE | 2020-09-15 07:30 | NUR ---
RECEIVED PATIENT IN BED. NO ACUTE DISTRESS NOTED. PATIENT ALERT & ORIENTED X4. PATIENT ON ROOM AIR, SATURATING WELL, BREATHING EVEN AND UNLABORED. PATIENT RIGHT FORERARM IV ACCESS INTACT, PATENT, FLUSHED WELL. PATIENT SAFETY MEASURES MAINTAINED. CALL LIGHT WITHIN REACH. WILL CONTINUE TO MONITOR.
--- NOTE | 2020-09-15 07:37 | NUR ---
RN NOTES PATIENT ALERT AND ORIENTED X3, ABLE TO MAKE NEEDS KNOWN. BREATHING EVEN AND UNLABORED. O2 SAT 93% ON ROOM AIR. NO SOB OR ANY RESPIRATORY DISTRESS. DENIES ANY PAIN AT THIS TIME. WITH IV LINE ON RFA #20 INTACT AND PATENT. ALL NEEDS ATTENDED PROMPTLY. BED LOCKED AND IN LOWEST POSITION. SIDE RAILS UP X2. SAFETY MEASURES IMPLEMENTED. CALL LIGHT WITHIN REACH. ENDORSED TO ONCOMING SHIFT.
[2020-09-15] MEDS: LEVOFLOXACIN (250MG) 250 MG TABLET PO SCH (09:27)
[2020-09-15] MEDS: POLYETHYLENE GLYCOL 3350 17 GM POWD.PACK PO SCH (09:27)
[2020-09-15] MEDS: ENOXAPARIN SODIUM 40 MG/0.4 ML DISP.SYRIN SQ SCH (09:28)
[2020-09-15] MEDS: CLOTRIMAZOLE 1% 15 GM TUBE TP SCH ×3 (09:28→16:16)
[2020-09-15] MEDS ORDERED: MAGNESIUM CITRATE 296 ML BOTTLE PO ONE (13:45)
[2020-09-15] MEDS ORDERED: MINERAL OIL 133 ML (PYXIS) 1 EA ENEMA RC ONE (13:45)
[2020-09-15 16:00] VITALS: BP 132/72
--- NOTE | 2020-09-15 18:34 | NUR ---
PATIENT IN BED. NO ACUTE DISTRESS NOTED. PATIENT ALERT & ORIENTED X4. PATIENT ON ROOM AIR, SATURATING WELL, BREATHING EVEN AND UNLABORED. PATIENT RIGHT FORERARM IV ACCESS INTACT, PATENT, FLUSHED WELL. PATIENT SAFETY MEASURES MAINTAINED. CALL LIGHT WITHIN REACH. WILL ENDORSE PLAN OF CARE TO ONCOMING SHIFT
[2020-09-15 20:00] VITALS: BP 128/73
--- NOTE | 2020-09-15 22:53 | NUR ---
RN OPENING NOTES RECEIVED PATIENT IN BED. ISOLATION PRECAUTIONS IN PLACE FOR POSITIVE COVID RESULT. PATIENT ALERT & ORIENTED X4 NO RESP DISTRESS OR SOB NOTED. PT IS ON ROOM AIR TOLERATING WELL SATURATING WELL AT 93%. LEFT CAST NOTED ON ANKLE. PT DENIES PAIN AT THIS TIME. AFEBRILE. PATIENT SAFETY MEASURES IN PLACE. HOB ELEVATED. SIDE RAILS UP X2. BED LOCKED IN LOWEST POSITION WITH BED ALARM ON. CALL LIGHT WITHIN REACH. WILL CONTINUE TO MONITOR.
[2020-09-16] MEDS: ONDANSETRON HCL/PF 4 MG/2 ML VIAL IVP PRN (00:07)
[2020-09-16 04:00] VITALS: BP 129/68
--- NOTE | 2020-09-16 07:30 | NUR ---
PT RECEIVED IN BED, ROOM AIR 93%. NO RESPIRATORY DISTRESS OR SOB. PT ALERT AND ORIENTED X 4. PT HAS RIGHT FORE ARM 22 G IV SL. NO SIGNS OF INFECTION OR INFILTRATION. PT NON-AMBULATORY, ABLE TO STAND WITH ASSIST. PT IN BED LOCKED LOWEST POSITION, CALL LIGHT WITHIN REACH. ALL SAFETY MEASURES IN PLACE. WILL CONTINUE TO MONITOR CLOSELY
--- NOTE | 2020-09-16 07:39 | NUR ---
RN CLOSING NOTES NO SIGNIFICANT CHANGES THROUGHOUT MY SHIFT. PT SLEPT WELL. NEEDS ATTENDED. PT STILL ON ROOM AIR. SATURATING 93% NO RESP DISTRESS OR SOB NOTED. PT IS AFEBRILE AND DENIES PAIN AT THIS TIME. PATIENT SAFETY MEASURES IN PLACE. HOB ELEVATED. SIDE RAILS UP X2. BED LOCKED IN LOWEST POSITION WITH BED ALARM ON. CALL LIGHT WITHIN REACH. WILL ENDORSE TO AM NURSE FOR CONTINUATION OF CARE.
[2020-09-16 07:49] LABS: CALCIUM, SERUM 8.2 mg/dL (8.5-10.1); CREATININE 0.7 mg/dL (0.6-1.3); POTASSIUM 3.6 mmol/L (3.5-5.1)
[2020-09-16 07:53] LABS: BASOPHILS % (AUTO) 0.4 % (0.0-2.0); HEMATOCRIT 35 % (39-51); HEMOGLOBIN 11.7 g/dL (13.5-17.5); LYMPHOCYTES # (AUTO) 1.4 /CMM (0.8-4.8); LYMPHOCYTES % (AUTO) 28.1 % (20.0-44.0); MEAN CORPUSCULAR HGB CONC 33 g/dl (31.0-36.0); MEAN CORPUSCULAR VOLUME 92 fL (80-96); MONOCYTES # (AUTO) 0.5 /CMM (0.1-1.30); MONOCYTES % (AUTO) 10.8 % (2.0-12.0); NEUTROPHILS % (AUTO) 60.7 % (43.0-81.0); PLATELET COUNT (AUTO) 225 /CMM (150-450); RED BLOOD CELL COUNT(AUTO) 3.81 MIL/uL (4.5-6.0); WHITE BLOOD COUNT (AUTO) 4.9 K/uL (4.3-11.0)
[2020-09-16 08:00] VITALS: BP 141/72
[2020-09-16] MEDS: POLYETHYLENE GLYCOL 3350 17 GM POWD.PACK PO SCH (10:24)
[2020-09-16] MEDS: LEVOFLOXACIN (250MG) 250 MG TABLET PO SCH (10:24)
[2020-09-16] MEDS: CLOTRIMAZOLE 1% 15 GM TUBE TP SCH ×2 (10:25→14:28)
[2020-09-16] MEDS: ENOXAPARIN SODIUM 40 MG/0.4 ML DISP.SYRIN SQ SCH (10:25)
[2020-09-16 12:00] VITALS: BP 122/71
--- NOTE | 2020-09-16 15:31 | NUR ---
PT DISCHARGE TO [facility]. REPORT GIVEN TO SHAY BY RUBÉN AVINA RN. YOLANAD PAPERWORK COMPLETE, BELONGINGS CHECKED AND RETURNED WITH PATIENT. PT REFUSED PHOTOGRAPHS OF WOUND. SBAR GIVEN TO TRANSPORT. ALL VITAL SIGNS STABLE. PT REMAINS RA NO RESPIRATORY DISTRESS. PT IV AND WRIST BANDS REMOVED.
== END 2020-09-16 17:53 | DRG 492 ==
LOC: ER 14:52 → MED 21:30 → TELE1 09-08 17:32 → MEDSG1 09-09 04:13
PROVIDERS: ADMIT Internal Medicine; ATTEND Nurse Practitioner Acute Care
PROC: 0QSK04Z Reposition Left Fibula with Internal Fixation Device, Open Approach (ICD-10-PCS; principal; 2020-09-07)
PROC: 0QSH04Z Reposition Left Tibia with Internal Fixation Device, Open Approach (ICD-10-PCS; 2020-09-07)
DX: S82.852A Displaced trimalleolar fracture of left lower leg, initial encounter for closed fracture (principal); U07.1 COVID-19; J12.89 Other viral pneumonia; N17.0 Acute kidney failure with tubular necrosis; K62.89 Other specified diseases of anus and rectum; N40.0 Benign prostatic hyperplasia without lower urinary tract symptoms; E78.5 Hyperlipidemia, unspecified; F40.240 Claustrophobia; I25.10 Atherosclerotic heart disease of native coronary artery without angina pectoris; N40.1 Benign prostatic hyperplasia with lower urinary tract symptoms; N20.0 Calculus of kidney; Z87.891 Personal history of nicotine dependence; D63.8 Anemia in other chronic diseases classified elsewhere; Z88.0 Allergy status to penicillin; I25.2 Old myocardial infarction; R33.9 Retention of urine, unspecified; K59.00 Constipation, unspecified; R73.03 Prediabetes; G62.9 Polyneuropathy, unspecified; W19.XXXA Unspecified fall, initial encounter; Y93.9 Activity, unspecified; Y92.89 Other specified places as the place of occurrence of the external cause; I10 Essential (primary) hypertension
CPT/HCPCS: 36415; 71045-TC; 73600-TC; 74018; 76770-TC; 80048-TC; 80076-TC; 81001; 83690-TC; 83735-TC; 84100-TC; 85025-TC; 85378-TC; 85730-TC; 87040-TC; 87081-TC; 87086-TC; 97110-TC; 97112-TC; 97530-TC; A4216; A4217; A6402; C1713; C9803; G0378; J0690; J0744; J1170; J1650; J1885; J1956; J2270; J2405; J2704; J3010; J3370; J3490; J7050; J7120; U0003